=== PATIENT | female | born 1950 | race Caucasian/White ===

== ENCOUNTER 2017-02-15 01:56 | Emergency (ER) | payer MEDICARE ==
[~2017-02-15] VITALS: Ht 149.9 cm; Wt 70.0 kg
[~2017-02-15 01:56] MED LIST: 1-ME1LIQ PO; ALBU8I INH; AZEL0.05; CEPH500C3 PO; FLON0.053; MULTCAP3
[2017-02-15 02:09] VITALS: BP 135/75; PULSE 73; RESP 18; TEMP 97.8; O2SAT 98
[2017-02-15] MEDS ORDERED: AMLO5TAB2 PO (02:42)
[2017-02-15] MEDS ORDERED: CITA20TA4 PO (02:42)
[2017-02-15] MEDS ORDERED: SODIUM CHLOR 0.9% 1000 ML INJ 1,000 ML IV SCH (02:53)
[2017-02-15] MEDS ORDERED: diphenhydrAMINE HCL 50 MG/ML VIAL IVP ONE (03:00)
[2017-02-15] MEDS ORDERED: methylPREDNISolone SOD SUCC 125 MG/2 ML VIAL IVP ONE (03:00)
[2017-02-15 03:07] LABS: BLOOD, URINE SMALL (NEG); GLUCOSE,URINE NEG (NEG); KETONE, URINE 40 mg/dL (NEG); NITRITE,URINE NEG (NEG); PH, URINE 5.5 (5.0-8.5)
--- NOTE | 2017-02-15 03:08 | PD ---
HPI Chief Complaint: Allergic/Adverse Reaction Time Seen by Provider: 02:32 Travel History International Travel<30 days: No Contact w/Intl Traveler<30days: No Traveled to known affect area: No History of Present Illness HPI The patient is a 66-year-old female that apparently has a urinary infection and was given Macrobid. She took 4 doses of Macrobid thus far. She woke up at 1 AM this morning feeling like "whole body is burning". The patient had this sensation before with a urinary tract infection and she had another antibiotic. She denies any fever, nausea or vomiting. The patient apparently showed similar symptoms in 2014 before the antibiotic was given and she had a urinary tract infection. PFSH Past Medical History Asthma: Yes Anxiety: Yes Depression: Yes Cancer: No Cardiovascular Problems: Yes Diabetes: No Diminished Hearing: No Diverticulitis: Yes Endocrine: No Gastrointestinal Disorders: Yes (DIVERTICULOSIS) GERD: Yes Genitourinary: No Hepatitis: No Hiatal Hernia: Yes Hypertension: Yes Immune Disorder: No Musculoskeletal: Yes (ARTHRITIS, OSTEOPORISIS, (rt rotator cuff sx 2016)) Neurologic: Yes (POOR BALANCE) Psychiatric: Yes (DEPRESSION ,ANXIETY) Reproductive: No Respiratory: Yes (ASTHMA) Immunizations Current: Yes Thyroid Disease: No Influenza Vaccination: Yes Menopausal: Yes Past Surgical History Abdominal Surgery: Yes (GALLBLADDER REMOVED) AICD: No Body Medical Devices: pacemaker Cholecystectomy: Yes Eye Surgery: Yes (BILAT CATARACTS) Gynecologic Surgery: Yes (HYSTERECTOMY) Hysterectomy: Yes Joint Replacement: Yes (RIGHT KNEE) Pacemaker: Yes Other Surgery: Yes (THYROID NODULE REMOVED) Social History Alcohol Use: Yes (OCCASIONAL) Tobacco Use: No Substance Use: No Allergies-Medications (Allergen,Severity, Reaction): Coded Allergies: Dilaudid (Verified Allergy, Severe, Dizziness, 02/15/17) Floxcin (Unverified Allergy, Severe, RASH, 02/15/17) Morphine (Verified Allergy, Severe, NAUSEA CHEST PAIN, 02/15/17) Tramadol (Verified Allergy, Severe, Dizziness, 02/15/17) Codeine (Verified Allergy, Intermediate, N/V/DIZZINESS, 02/15/17) Reported Meds & Prescriptions Reported Meds & Active Scripts Active Reported Amlodipine (Amlodipine Besylate) 5 Mg Tab 5 Mg PO HS Citalopram (Citalopram Hydrobromide) 20 Mg Tab 20 Mg PO HS Review of Systems Except as stated in HPI: all other systems reviewed are Neg Physical Exam Narrative GENERAL: The patient is alert, oriented 3 in moderate apparent distress with her skin burning sensation. Her vital signs are normal. SKIN: Focused skin assessment warm/dry. No skin rash is seen. HEAD: Atraumatic. Normocephalic. EYES: Pupils equal and round. No scleral icterus. No injection or drainage. ENT: No nasal bleeding or discharge. Mucous membranes pink and moist. NECK: Trachea midline. No JVD. CARDIOVASCULAR: Regular rate and rhythm. No murmur appreciated. RESPIRATORY: No accessory muscle use. Clear to auscultation. Breath sounds equal bilaterally. GASTROINTESTINAL: Abdomen soft, non-tender, nondistended. Hepatic and splenic margins not palpable. The patient has right flank tenderness but no left flank tenderness. She also has suprapubic discomfort on deep palpation. MUSCULOSKELETAL: No obvious deformities. No clubbing. No cyanosis. No edema. NEUROLOGICAL: Awake and alert. No obvious cranial nerve deficits. Motor grossly within normal limits. Normal speech. PSYCHIATRIC: Appropriate mood and affect; insight and judgment normal. Data Data Last Documented VS Vital Signs Date Time Temp Pulse Resp B/P Pulse Ox O2 Delivery O2 Flow Rate FiO2 02/15/17 02:30 Room Air 02/15/17 02:09 97.8 73 18 135/75 98 Orders Diphenhydramine Inj (Benadryl Inj) (02/15/17 03:00) Methylprednisolone So Succ Inj (Solumedr (02/15/17 03:00) Sodium Chlor 0.9% 1000 Ml Inj (Ns 1000 M (02/15/17 02:53) Urinalysis - C+S If Indicated (02/15/17 02:53) Prochlorperazine Inj (Compazine Inj) (02/15/17 03:15) Labs Laboratory Tests Test 02/15/17 02:57 Urine Color STRAW Urine Turbidity CLEAR Urine pH 5.5 Urine Specific [place] 1.014 Urine Protein NEG mg/dL Urine Glucose (UA) NEG mg/dL Urine Ketones 40 mg/dL Urine Occult Blood SMALL Urine Nitrite NEG Urine Bilirubin NEG Urine Leukocyte Esterase SMALL Urine RBC 3-5 /hpf Urine WBC 6-8 /hpf Urine Squamous Epithelial 0-5 /hpf Cells Urine Bacteria NONE /hpf Microscopic Urinalysis Comment CULT NOT INDICATED MDM Medical Decision Making Medical Screen Exam Complete: Yes Emergency Medical Condition: Yes Medical Record Reviewed: Yes Interpretation(s) The urine shows 40 ketones, small occult blood, small leukocyte esterase with 6- 8 white cells and culture is not indicated. Differential Diagnosis Urinary tract infection, reaction to urinary infection, reaction to Macrobid antibiotic Narrative Course The patient appears to have a reaction to the urinary infection. This is happened before to her in 2014. She had a reaction very similar to this one before they started the antibiotic. The antibiotic used at that time was a different antibiotic also. Plan: The patient should continue the Macrobid twice daily. If the reaction gets worse we may have to discontinue the Macrobid. She will need to increase liquid intake, take Benadryl and a tapered course of prednisone as well as Phenergan for nausea. Diagnosis Primary Impression: Urinary tract infection Additional Impression: Allergic reaction Additional Instructions: As we discussed, the prednisone is taken one tablet twice daily for 4 days followed by 1 tablet daily for 4 days. If he get worse, we may need to discontinue the urinary antibiotic. I do not think krish's reaction is to the antibiotic but to the urinary infection. Take the Benadryl one tablet every 6 hours and the Phenergan is for nausea and this also is every 6 hours. Follow-up next week with your primary care physician. Med/Other Pt SpecificInfo: Prescription(s) given Scripts Promethazine (Phenergan)25 Mg [id number] Mg PO Q6H PRN (NAUSEA OR VOMITING) #30 TAB Ref 0 Prov:Kanu Reyes MD 02/15/17 Diphenhydramine 25 Mg Cap25 Mg PO Q6H #33 CAP Ref 0 Prov:Kanu Reyes MD 02/15/17 Prednisone 50 Mg Tab50 Mg PO BID #12 TAB Ref 0 Prov:Kanu Reyes MD 02/15/17 Disposition: 01 DISCHARGE HOME Condition: Stable Kanu Reyes MD Feb 15, 2017 03:08
[2017-02-15 03:10] LABS: URINE COLOR STRAW (YELLW/STRAW)
[2017-02-15 03:12] LABS: COMMENT (UR) CULT NOT INDICATED; CULTURE IF INDICATED CULT NOT INDICATED; SQUAMOUS EPITHELIAL CELL URINE 0-5 /hpf (0-5)
[2017-02-15] MEDS ORDERED: PROCHLORPERAZINE INJ 10 MG/2 ML VIAL IV PUSH ONE (03:15)
[2017-02-15] MEDS ORDERED: PROM25TA10 PO (03:36)
[2017-02-15] MEDS ORDERED: PRED50 PO (03:36)
[2017-02-15] MEDS ORDERED: DIPH25CA PO (03:36)
[2017-02-15] MEDS ORDERED: PROMETHAZINE HCL 25 MG TAB PO ONE (04:15)
[2017-02-15 04:17] VITALS: BP 136/75
== END 2017-02-15 04:18 | disposition home or self-care (01) ==
LOC: PHED 01:56
DX: N39.0 Urinary tract infection, site not specified (principal); T78.49XA Other allergy, initial encounter; I10 Essential (primary) hypertension; Z87.09 Personal history of other diseases of the respiratory system; Z86.59 Personal history of other mental and behavioral disorders; Z86.79 Personal history of other diseases of the circulatory system; Z87.19 Personal history of other diseases of the digestive system; Z87.39 Personal history of other diseases of the musculoskeletal system and connective tissue; Z86.69 Personal history of other diseases of the nervous system and sense organs; X58.XXXA Exposure to other specified factors, initial encounter
CPT/HCPCS: 81001; 96361; 96374; 96375; 99284; J0780; J1200; J2930; J7030; Q0169

== ENCOUNTER 2017-03-06 12:43 | Emergency (ER) | payer MEDICARE ==
[~2017-03-06] VITALS: Ht 149.9 cm; Wt 66.8 kg
[~2017-03-06 12:43] MED LIST changes: -1-ME1LIQ PO; -ALBU8I INH; +AMLO5TAB2 PO; -AZEL0.05; -CEPH500C3 PO; +CITA20TA4 PO; +DIPH25CA PO; -FLON0.053; -MULTCAP3; +PRED50 PO; +PROM25TA10 PO
[2017-03-06 12:52] VITALS: BP 165/79; PULSE 82; RESP 13; TEMP 98; O2SAT 100
--- NOTE | 2017-03-06 12:53 | PD ---
Physical Exam Date Seen by Provider: Mar 06, 2017 Time Seen by Provider: 12:52 MDM Supervised Visit with WAQAR: No Narrative Course 66 YO F with complaint of lightheadedness x 2 weeks. Also complains 6/10 burning abdominal pain, increased urinary output x 1 week. +nausea. History of diverticulitis. Vitals reviewed. Seen in triage, awaiting bed placement. Yenni Borrego Mar 06, 2017 12:53
[2017-03-06] MEDS ORDERED: SODIUM CHLOR 0.9% 1000 ML INJ 1,000 ML IV ONE (13:24)
--- NOTE | 2017-03-06 13:27 | PD ---
HPI Chief Complaint: General Weakness Time Seen by Provider: 13:27 Travel History International Travel<30 days: No Contact w/Intl Traveler<30days: No Traveled to known affect area: No History of Present Illness HPI 66-year-old female with a history of hypertension, GERD, hiatal hernia, anxiety , AV block with pacemaker implantation presents to the emergency department for evaluation of lightheadedness for 2 weeks and epigastric pain. The patient states that she has had intermittent lightheadedness for the past 2 weeks. States that she has had slight generalized weakness as well. States that over the past several days she's had epigastric pain that is a sharp burning pain and has been constant with some nausea. States that she's had this pain in the past and was seen by Dr. Hernandez and by her primary and was prescribed Carafate and referred out for EGD scheduled in the next several weeks. She states today she had some burning underneath both axilla radiating to her chest that lasted for a few minutes but has since resolved. States that she was diagnosed with urinary tract infection about 2 weeks ago and recently finished a prescription for Macrobid. She denies any fever, chills, vomiting, diarrhea, constipation, shortness of breath, difficulty breathing, cough or cold symptoms, numbness or tingling, one-sided weakness. PCP Dr. White. No other complaints. Prior abdominal surgeries include cholecystectomy and total hysterectomy. PFSH Past Medical History Asthma: Yes Anxiety: Yes Depression: Yes Cancer: No Cardiovascular Problems: Yes (PACEMAKER PLACEMENT 2016) Diabetes: No Diminished Hearing: No Diverticulitis: Yes Endocrine: No Gastrointestinal Disorders: Yes (DIVERTICULOSIS) GERD: Yes Genitourinary: No Hepatitis: No Hiatal Hernia: Yes Hypertension: Yes Immune Disorder: No Musculoskeletal: Yes (ARTHRITIS, OSTEOPORISIS, (rt rotator cuff sx 2016)) Neurologic: Yes (POOR BALANCE) Psychiatric: Yes (DEPRESSION ,ANXIETY) Reproductive: No Respiratory: Yes (ASTHMA) Immunizations Current: Yes Thyroid Disease: No ?: Not Menopausal: Yes Past Surgical History Abdominal Surgery: Yes (GALLBLADDER REMOVED) AICD: No Body Medical Devices: pacemaker Cholecystectomy: Yes Eye Surgery: Yes (BILAT CATARACTS) Gynecologic Surgery: Yes (HYSTERECTOMY) Hysterectomy: Yes Joint Replacement: Yes (RIGHT KNEE) Pacemaker: Yes Other Surgery: Yes (THYROID NODULE REMOVED) Social History Alcohol Use: Yes (OCCASIONAL) Tobacco Use: No Substance Use: No Allergies-Medications (Allergen,Severity, Reaction): Coded Allergies: Dilaudid (Verified Allergy, Severe, Dizziness, 03/06/17) Floxcin (Unverified Allergy, Severe, RASH, 03/06/17) Morphine (Verified Allergy, Severe, NAUSEA CHEST PAIN, 03/06/17) Tramadol (Verified Allergy, Severe, Dizziness, 03/06/17) Codeine (Verified Allergy, Intermediate, N/V/DIZZINESS, 03/06/17) Reported Meds & Prescriptions Reported Meds & Active Scripts Active Phenergan (Promethazine HCl) 25 Mg Tablet 25 Mg PO Q6H PRN Diphenhydramine (Diphenhydramine HCl) 25 Mg Cap 25 Mg PO Q6H Reported Carafate Liq (Sucralfate) 1 Gm/10 Ml Susp 1 Gm PO Q12HR on empty stomach Lorazepam 0.5 Mg Tab 0.5 Mg PO TID PRN Citalopram (Citalopram Hydrobromide) 10 Mg Tab 10 Mg PO HS Amlodipine (Amlodipine Besylate) 5 Mg Tab 5 Mg PO HS Review of Systems Except as stated in HPI: all other systems reviewed are Neg Physical Exam Narrative GENERAL: Well-nourished and well-developed pleasant female patient in no acute distress, anxious appearing. SKIN: Warm and dry. HEAD: Normocephalic and atraumatic. EYES: No injection, drainage, or hyphema noted. PERRLA. EOMI. ENT: No nasal drainage noted. Oropharynx is clear. NECK: Supple and the trachea is midline. CARDIOVASCULAR: Regular rate and rhythm. RESPIRATORY: Breath sounds are equal bilaterally with no accessory muscle use, wheezing, rhonchi, or crackles. GASTROINTESTINAL: Mild epigastric tenderness to palpation. No rebound tenderness or guarding. Abdomen is soft and nondistended. MUSCULOSKELETAL: No obvious deformities, swelling, cyanosis, or ecchymosis is present throughout the upper and lower extremities. Patient has full range of motion without any signs of neurovascular compromise. Strength 5/5 upper and lower extremities and equal bilaterally. NEUROLOGICAL: Awake, alert, and oriented. Normal speech and gait. Cranial nerves are grossly intact. Data Data Last Documented VS Vital Signs Date Time Temp Pulse Resp B/P Pulse Ox O2 Delivery O2 Flow Rate FiO2 03/06/17 12:52 98.0 82 13 165/79 100 Orders Electrocardiogram (03/06/17 13:24) Complete Blood Count With Diff (03/06/17 13:24) Comprehensive Metabolic Panel (03/06/17 13:24) Troponin I (03/06/17 13:24) Act Partial Throm Time (Ptt) (03/06/17 13:24) Prothrombin Time / Inr (Pt) (03/06/17 13:24) Urinalysis - C+S If Indicated (03/06/17 13:24) Chest, Single Ap (03/06/17 13:24) Ecg Monitoring (03/06/17 13:24) Iv Access Insert/Monitor (03/06/17 13:24) Oximetry (03/06/17 13:24) Ondansetron Inj (Zofran Inj) (03/06/17 13:30) Sodium Chloride 0.9% Flush (Ns Flush) (03/06/17 13:30) Sodium Chlor 0.9% 1000 Ml Inj (Ns 1000 M (03/06/17 13:24) Lipase (03/06/17 13:24) Famotidine Inj (Pepcid Inj) (03/06/17 13:30) Potassium Chloride Eff (K-Lyte Cl Eff) (03/06/17 14:45) Al-Mag Hy-Si 40-40-4 Mg/Ml Liq (Mag-Al P (03/06/17 15:45) Lidocaine 2% Viscous (Xylocaine 2% Visco (03/06/17 15:45) Labs Laboratory Tests Test 03/06/17 03/06/17 13:40 13:52 White Blood Count 5.4 TH/MM3 Red Blood Count 4.98 MIL/MM3 Hemoglobin 14.2 GM/DL Hematocrit 42.0 % Mean Corpuscular Volume 84.3 FL Mean Corpuscular Hemoglobin 28.5 PG Mean Corpuscular Hemoglobin 33.8 % Concent Red Cell Distribution Width 13.8 % Platelet Count 234 TH/MM3 Mean Platelet Volume 7.5 FL Neutrophils (%) (Auto) 60.1 % Lymphocytes (%) (Auto) 27.5 % Monocytes (%) (Auto) 8.1 % Eosinophils (%) (Auto) 3.1 % Basophils (%) (Auto) 1.2 % Neutrophils # (Auto) 3.2 TH/MM3 Lymphocytes # (Auto) 1.5 TH/MM3 Monocytes # (Auto) 0.4 TH/MM3 Eosinophils # (Auto) 0.2 TH/MM3 Basophils # (Auto) 0.1 TH/MM3 CBC Comment DIFF FINAL Differential Comment Prothrombin Time 10.8 SEC Prothromb Time International 1.0 RATIO Ratio Activated Partial 28.4 SEC Thromboplast Time Sodium Level 142 MEQ/L Potassium Level 3.1 MEQ/L Chloride Level 105 MEQ/L Carbon Dioxide Level 25.7 MEQ/L Anion Gap 11 MEQ/L Blood Urea Nitrogen 8 MG/DL Creatinine 0.53 MG/DL Estimat Glomerular Filtration 115 ML/MIN Rate Random Glucose 93 MG/DL Calcium Level 9.3 MG/DL Total Bilirubin 0.6 MG/DL Aspartate Amino Transf 20 U/L (AST/SGOT) Alanine Aminotransferase 27 U/L (ALT/SGPT) Alkaline Phosphatase 143 U/L Troponin I 0.02 NG/ML Total Protein 7.1 GM/DL Albumin 3.4 GM/DL Lipase 99 U/L Urine Color YELLOW Urine Turbidity CLEAR Urine pH 5.5 Urine Specific [place] 1.009 Urine Protein NEG mg/dL Urine Glucose (UA) NEG mg/dL Urine Ketones 80 mg/dL Urine Occult Blood SMALL Urine Nitrite NEG Urine Bilirubin NEG Urine Urobilinogen LESS THAN 2.0 MG/DL Urine Leukocyte Esterase SMALL Urine RBC 5 /hpf Urine WBC 6 /hpf Urine Squamous Epithelial 1 /hpf Cells Urine Bacteria RARE /hpf Urine Mucus FEW /lpf Microscopic Urinalysis Comment CULT NOT INDICATED MDM Medical Decision Making Medical Screen Exam Complete: Yes Emergency Medical Condition: Yes Differential Diagnosis Dehydration versus urinary tract infection versus anxiety versus electrolyte abnormality versus gastritis Narrative Course 66-year-old female presents to the emergency department for evaluation of 2 week history of lightheadedness and several day history of epigastric pain. Patient is afebrile, vital signs are stable. His examination reveals some mild epigastric tenderness but overall abdominal examination is benign. No focal neurologic deficits. IV access is obtained, labs drawn and sent. Patient is placed on cardiac telemetry and pulse oximetry monitoring. Patient is administered IV fluids, Zofran and Pepcid. EKG shows electronic ventricular pacemaker with a ventricular rate of 69 beats per minute. CBC is unremarkable. CMP shows hypokalemia with a potassium of 3.1. Alkaline phosphatase elevated 143. Troponin is 0.02. Coags were unremarkable. Urinalysis shows 80 ketones, small occult blood, small site esterase, 5 red blood cells, 6 white blood cells, rare bacteria, few mucus. Patient has remained stable while here in the emergency department. Her potassium was repleted orally. The patient has mild hypokalemia, mild dehydration and urinary tract infection noted on her labs and UA. All of these things could explain her lightheadedness. I don't feel that her symptoms are neurologic or secondary to an intracranial abnormality therefore head CT was canceled. I discussed supportive care with the patient and her . She' ll be given a GI cocktail here in the ED before she is discharged. She'll be sent home with Zantac and Keflex. Advised to follow-up with her PCP and fish agent. Patient verbalizes understanding and agreement with treatment plan. I discussed the case with my attending physician Dr. Arteaga who is aware of the patients history, physical examination findings, and treatment plan. Diagnosis Primary Impression: Urinary tract infection Qualified Code: N39.0 - Urinary tract infection with hematuria, site unspecified Additional Impressions: Gastritis Qualified Code: K29.00 - Acute gastritis without hemorrhage, unspecified gastritis type Hypokalemia Lightheadedness Referrals: [facility] Care Physician Patient Instructions: Gastritis (ED), General Instructions, Urinary Tract Infection in Women (ED) Additional Instructions: Take medications as prescribed. Follow-up with your Primary Care Physician and [facility]. Return to the ED for any acute worsening of symptoms. Med/Other Pt SpecificInfo: Prescription(s) given Scripts Cephalexin (Keflex)500 Mg Gal361 Mg PO Q12H 7 Days Ref 0 Prov:Azar Arteaga MD 03/06/17 Ranitidine 150 Mg [id number] Mg PO BID 14 Days Ref 0 Prov:Azar Arteaga MD 03/06/17 Disposition: 01 DISCHARGE HOME Condition: Stable Zita Aguilar Mar 06, 2017 13:27
[2017-03-06] MEDS ORDERED: FAMOTIDINE 20 MG/2 ML VIAL IV PUSH ONE (13:30)
[2017-03-06] MEDS ORDERED: ONDANSETRON HCL 4 MG/2 ML VIAL IVP ONE (13:30)
[2017-03-06] MEDS ORDERED: SODIUM CHLORIDE 0.9% FLUSH 10 ML FLUSH IVF PRN (13:30)
[2017-03-06 13:35] VITALS: BP 157/75; PULSE 72; RESP 18; O2SAT 98
[2017-03-06 14:05] LABS: AUTOMATED NEUTROPHIL # 3.2 TH/MM3 (1.8-7.7); BASOPHIL # 0.1 TH/MM3 (0-0.2); BASOPHIL % 1.2 % (0.0-2.0); EOSINOPHIL # 0.2 TH/MM3 (0-0.4); EOSINOPHIL % 3.1 % (0.0-4.0); HEMO FLAGS DIFF FINAL; LYMPH % 27.5 % (9.0-44.0); LYMPHOCYTE # 1.5 TH/MM3 (1.0-4.8); MEAN CELL VOLUME 84.3 FL (80.0-100.0); MEAN CORPUSCULAR HEMOGLOBIN 28.5 PG (27.0-34.0); MEAN CORPUSCULAR HGB CONC 33.8 % (32.0-36.0); MONO % 8.1 % (0.0-8.0); NEUT % 60.1 % (16.0-70.0); PLATELET COUNT 234 TH/MM3 (150-450); RED BLOOD COUNT 4.98 MIL/MM3 (4.00-5.30); RED CELL DISTRIBUTION WIDTH 13.8 % (11.6-17.2); WHITE BLOOD COUNT 5.4 TH/MM3 (4.0-11.0)
[2017-03-06 14:13] LABS: BACTERIA, URINE RARE /hpf; BLOOD, URINE SMALL (NEG); COMMENT (UR) CULT NOT INDICATED; CULTURE IF INDICATED CULT NOT INDICATED; GLUCOSE,URINE NEG (NEG); KETONE, URINE 80 mg/dL (NEG); MUCUS URINE FEW /lpf (OCC); NITRITE,URINE NEG (NEG); PH, URINE 5.5 (5.0-8.5); SQUAMOUS EPITHELIAL CELL URINE 1 /hpf (0-5); URINE COLOR YELLOW (YELLW/STRAW)
[2017-03-06 14:14] LABS: APTT (PATIENT) 28.4 SEC (24.3-30.1); PROTHROMBIN TIME - PATIENT 10.8 SEC (9.8-11.6)
[2017-03-06 14:21] LABS: ALT (GPT) 27 U/L (10-53); ANION GAP 11 MEQ/L (5-15); AST (GOT) 20 U/L (15-37); BICARBONATE 25.7 MEQ/L (21.0-32.0); BLOOD UREA NITROGEN 8 MG/DL (7-18); CHLORIDE 105 MEQ/L (98-107); GLOMERULAR FILTRATION RATE 115 ML/MIN (>89); POTASSIUM 3.1 MEQ/L (3.5-5.1); SODIUM (NA) 142 MEQ/L (136-145)
[2017-03-06 14:24] LABS: ALKALINE PHOSPHATASE 143 U/L (45-117); TOTAL BILIRUBIN ADULT 0.6 MG/DL (0.2-1.0)
--- NOTE | 2017-03-06 14:38 | RADRPT ---
EXAM DATE/TIME: 03/06/2017 14:06 [facility] COMPARISON: CHEST SINGLE AP, May 17, 2016, 12:17. INDICATIONS : Dizzy for 2 weeks, weak. MEDICAL HISTORY : mitral valve prolapse, right bundle branch block, heart murmur, asthma SURGICAL HISTORY : Pacemaker. ENCOUNTER: Initial ACUITY: 2 weeks PAIN SCORE: 0/10 LOCATION: Bilateral chest FINDINGS: Stable dual-lead pacemaker. Lungs are clear. Cardiomediastinal contours are stable. Bony thorax is in tact. CONCLUSION: 1. No acute cardio pulmonary disease. Josh Mcguire MD on March 06, 2017 at 14:34 Board Certified Radiologist. This report was verified electronically.
[2017-03-06] MEDS ORDERED: POTASSIUM CHLORIDE 25 MEQ EFFERVESCENT TAB PO ONE (14:45)
[2017-03-06] MEDS ORDERED: CITA10TA4 PO (15:12)
[2017-03-06] MEDS ORDERED: CARA1SUS3 PO (15:12)
[2017-03-06] MEDS ORDERED: LORA-373 PO (15:12)
[2017-03-06] MEDS ORDERED: CEPH-460 PO (15:34)
[2017-03-06] MEDS ORDERED: RANI150T PO (15:34)
[2017-03-06] MEDS ORDERED: ALUMINUM/MAGNESIUM/SIMETH 30 ML CUP PO ONE (15:45)
[2017-03-06] MEDS ORDERED: LIDOCAINE VISCOUS 2% SOLN 15 ML UDC PO ONE (15:45)
[2017-03-06] MEDS ORDERED: DIFL150T PO (16:12)
--- NOTE | 2017-03-07 13:51 | EKG ---
Date Performed: 03/06/2017 Time Performed: 14:02:19 PTAGE: 66 years EKG: ELECTRONIC VENTRICULAR PACEMAKER ABNORMAL RHYTHM ECG Compared to prior tracing no significa nt change PREVIOUS TRACING : 05/18/2016 07.11 DOCTOR: Staci Harding Interpretating Date/Time 03/07/2017 13:45:33
== END 2017-03-06 16:29 | disposition home or self-care (01) ==
LOC: NEPC 12:43
DX: F32.9 Major depressive disorder, single episode, unspecified (principal); N39.0 Urinary tract infection, site not specified; K29.70 Gastritis, unspecified, without bleeding; E87.6 Hypokalemia; R42 Dizziness and giddiness; I10 Essential (primary) hypertension; K21.9 Gastro-esophageal reflux disease without esophagitis; F41.9 Anxiety disorder, unspecified; J45.909 Unspecified asthma, uncomplicated; K57.92 Diverticulitis of intestine, part unspecified, without perforation or abscess without bleeding
CPT/HCPCS: 71010; 80053; 81001; 83690; 84484; 85025; 85610; 85730; 93005; 96361; 96374; 96375; 99285; J2405; J7030

== ENCOUNTER 2017-08-05 07:36 | Observation (INO) | payer MEDICARE ==
[~2017-08-05] VITALS: Ht 149.9 cm; Wt 66.0 kg
[~2017-08-05 07:36] MED LIST changes: +CARA1SUS3 PO; +CEPH-460 PO; +CITA10TA4 PO; -CITA20TA4 PO; +DIFL150T PO; +LORA0.5T PO; -PRED50 PO; +RANI150T PO
[2017-08-05 07:39] VITALS: BP 182/86; PULSE 91; RESP 18; TEMP 98.1; O2SAT 96
[2017-08-05] MEDS ORDERED: ALBUAER3 INH (08:08)
[2017-08-05] MEDS ORDERED: FLUT50SP EACH NARE (08:08)
[2017-08-05] MEDS ORDERED: CRAN200C2 (08:08)
[2017-08-05] MEDS ORDERED: SODIUM CHLORIDE 0.9% FLUSH 10 ML FLUSH IVF PRN (08:15)
[2017-08-05] MEDS ORDERED: ASPIRIN 81 MG CHEW TAB PO ONE (08:15)
[2017-08-05 08:27] LABS: AUTOMATED NEUTROPHIL # 4.3 TH/MM3 (1.8-7.7); BASOPHIL # 0.1 TH/MM3 (0-0.2); EOSINOPHIL # 0.2 TH/MM3 (0-0.4); EOSINOPHIL % 2.4 % (0.0-4.0); HEMATOCRIT 38.3 % (35.0-46.0); HEMO FLAGS DIFF FINAL; LYMPH % 26.5 % (9.0-44.0); LYMPHOCYTE # 1.8 TH/MM3 (1.0-4.8); MEAN CELL VOLUME 86.8 FL (80.0-100.0); MEAN CORPUSCULAR HEMOGLOBIN 29.9 PG (27.0-34.0); MEAN CORPUSCULAR HGB CONC 34.4 % (32.0-36.0); MONO % 6.4 % (0.0-8.0); NEUT % 63.7 % (16.0-70.0); PLATELET COUNT 297 TH/MM3 (150-450); RED BLOOD COUNT 4.42 MIL/MM3 (4.00-5.30); RED CELL DISTRIBUTION WIDTH 12.8 % (11.6-17.2); WHITE BLOOD COUNT 6.7 TH/MM3 (4.0-11.0)
[2017-08-05 08:38] LABS: APTT (PATIENT) 28.7 SEC (24.3-30.1); PROTHROMBIN TIME - PATIENT 10.7 SEC (9.8-11.6)
[2017-08-05 08:48] LABS: BLOOD, URINE NEG (NEG); GLUCOSE,URINE NEG (NEG); KETONE, URINE NEG (NEG); NITRITE,URINE NEG (NEG); URINE COLOR LIGHT-YELLOW (YELLW/STRAW)
[2017-08-05 08:51] LABS: MUCUS URINE FEW /lpf (OCC); WBC, URINE 0-2 /hpf (0-5)
[2017-08-05 08:52] LABS: BACTERIA, URINE OCC /hpf; COMMENT (UR) CULT NOT INDICATED; CULTURE IF INDICATED CULT NOT INDICATED; SQUAMOUS EPITHELIAL CELL URINE 0-5 /hpf (0-5)
[2017-08-05 08:55] LABS: ALKALINE PHOSPHATASE 161 U/L (45-117); ALT (GPT) 18 U/L (10-53); ANION GAP 8 MEQ/L (5-15); AST (GOT) 19 U/L (15-37); BLOOD UREA NITROGEN 13 MG/DL (7-18); CHLORIDE 106 MEQ/L (98-107); GLOMERULAR FILTRATION RATE 106 ML/MIN (>89); SODIUM (NA) 141 MEQ/L (136-145); TOTAL BILIRUBIN ADULT 0.3 MG/DL (0.2-1.0)
[2017-08-05 08:56] LABS: CREATINE KINASE 70 U/L (26-192)
[2017-08-05 08:58] LABS: POTASSIUM 2.9 MEQ/L (3.5-5.1)
--- NOTE | 2017-08-05 08:58 | RADRPT ---
EXAM DATE/TIME: 08/05/2017 08:23 [facility] COMPARISON: CHEST SINGLE AP, March 06, 2017, 14:06. INDICATIONS : Irregular heart beat. Pacemaker keeps going off. MEDICAL HISTORY : Irregular heart beat. SURGICAL HISTORY : Pacemaker. ENCOUNTER: Initial ACUITY: 2 days PAIN SCORE: 0/10 LOCATION: Bilateral chest FINDINGS: Stable dual lead pacemaker with battery pack obscuring portion of the inferior left hemithorax. No ne w focal pleural or parenchymal opacities. Cardiomediastinal contours are within normal limits. Bony t horax is intact. CONCLUSION: 1. No acute abnormality or significant interval change. Josh Mcguire MD on August 05, 2017 at 8:56 Board Certified Radiologist. This report was verified electronically.
[2017-08-05] MEDS ORDERED: POTASSIUM CHLORIDE 10 MEQ CONTROLLED RELEASE TAB PO ONE (09:00)
--- NOTE | 2017-08-05 09:15 | PD ---
HPI Chief Complaint: Chest Pain Time Seen by Provider: 08:01 Travel History International Travel<30 days: No Contact w/Intl Traveler<30days: No Traveled to known affect area: No History of Present Illness HPI Patient is a 66 year old female who comes in complaining of chest pain. She says for three weeks she had pain on and off in the center of her chest. She says that last night it became worse. She says she gets pain across her chest and into her shoulder. She says she has some shortness of breath associated with the pain, but denies vomiting. She says she came in today because the pain went into her arms and this worried her. She denies abdominal pain. She describes the chest pain as a pressure sensation in her chest. She has not taken anything for her symptoms. [facility] Past Medical History Asthma: Yes Anxiety: Yes Depression: Yes Heart Rhythm Problems: Yes (R BBB ) Cancer: No Cardiovascular Problems: Yes (PACEMAKER ) Diabetes: No Diminished Hearing: No Diverticulitis: Yes Endocrine: Yes (HYPOGLYCEMIA) Gastrointestinal Disorders: Yes (DIVERTICULOSIS) GERD: Yes Genitourinary: No Hepatitis: No Hiatal Hernia: Yes Hypertension: Yes Immune Disorder: Yes (MARKERS FOR LUPUS ) Musculoskeletal: Yes (ARTHRITIS, OSTEOPORISIS, (rt rotator cuff sx 2016)) Neurologic: Yes (POOR BALANCE) Psychiatric: Yes (DEPRESSION ,ANXIETY) Reproductive: No Respiratory: Yes (ASTHMA) Immunizations Current: Yes Thyroid Disease: No Tetanus Vaccination: < 5 Years Menopausal: Yes Past Surgical History Abdominal Surgery: Yes (GALLBLADDER REMOVED) AICD: No Body Medical Devices: pacemaker Cholecystectomy: Yes Eye Surgery: Yes (BILAT CATARACTS) Gynecologic Surgery: Yes (HYSTERECTOMY) Hysterectomy: Yes Joint Replacement: Yes (RIGHT KNEE) Pacemaker: Yes Other Surgery: Yes (THYROID NODULE REMOVED) Social History Alcohol Use: Yes (RARE ) Tobacco Use: No Substance Use: No Allergies-Medications (Allergen,Severity, Reaction): Coded Allergies: hydromorphone (Unverified Allergy, Severe, Dizziness, 08/05/17) morphine (Unverified Allergy, Severe, NAUSEA CHEST PAIN, 08/05/17) ofloxacin (Unverified Allergy, Severe, RASH, 08/05/17) tramadol (Unverified Allergy, Severe, Dizziness, 08/05/17) codeine (Unverified Allergy, Intermediate, N/V/DIZZINESS, 08/05/17) Reported Meds & Prescriptions Reported Meds & Active Scripts Active Ranitidine (Ranitidine HCl) 150 Mg Tab 150 Mg PO BID 14 Days Reported Proair Hfa 8.5 GM Inh (Albuterol Sulfate) 90 Mcg/Act Aer 1 Puff INH Q4H PRN 108 mcg/actuation Fluticasone Nasal [place] 50 Mcg/Act Naspr 50 Mcg EACH NARE BID 50 mcg/spray Ellura (Cranberry (Vaccinium Macrocarpon)) 200 Mg Cap Lorazepam 0.5 Mg Tab 0.5 Mg PO TID PRN Citalopram (Citalopram Hydrobromide) 10 Mg Tab 10 Mg PO HS Amlodipine (Amlodipine Besylate) 5 Mg Tab 5 Mg PO HS Review of Systems Except as stated in HPI: all other systems reviewed are Neg General / Constitutional: No: Fever, Chills HENT: No: Headaches, Lightheadedness Cardiovascular: Positive: Chest Pain or Discomfort Respiratory: Positive: Shortness of Breath, No: Cough Gastrointestinal: Positive: Nausea, No: Vomiting, Abdominal Pain Genitourinary: No: Dysuria Musculoskeletal: No: Weakness, Edema Skin: No Rash, No Change in Pigmentation Neurologic: No: Weakness, Dizziness Physical Exam Narrative GENERAL: Awake and alert, in no acute distress. SKIN: Focused skin assessment warm/dry. HEAD: Atraumatic. Normocephalic. EYES: Pupils equal and round. No scleral icterus. ENT: Mucous membranes pink and moist. NECK: Trachea midline. No JVD. CARDIOVASCULAR: Regular rate and rhythm. No murmur appreciated. RESPIRATORY: No accessory muscle use. Clear to auscultation. Breath sounds equal bilaterally. GASTROINTESTINAL: Abdomen soft, non-tender, nondistended. MUSCULOSKELETAL: No obvious deformities. No clubbing. No cyanosis. No edema. NEUROLOGICAL: Awake and alert. No obvious cranial nerve deficits. Motor grossly within normal limits. Normal speech. PSYCHIATRIC: Appropriate mood and affect; insight and judgment normal. Data Data Last Documented VS Vital Signs Date Time Temp Pulse Resp B/P (MAP) Pulse Ox O2 Delivery O2 Flow Rate FiO2 08/05/17 08:18 Room Air 08/05/17 07:55 76 16 08/05/17 07:39 98.1 182/86 (118) 96 Orders Orders Electrocardiogram (08/05/17 08:01) Ckmb (Isoenzyme) Profile (08/05/17 08:01) Complete Blood Count With Diff (08/05/17 08:) Comprehensive Metabolic Panel (08/05/17 08:) Prothrombin Time / Inr (Pt) (08/05/17 08:) Act Partial Throm Time (Ptt) (08/05/17 08:01) Troponin I (08/05/17 08:) Chest, Single Ap (08/05/17 08:) Ecg Monitoring (08/05/17 08:) Bilateral Bp Monitoring (08/05/17 08:) Iv Access Insert/Monitor (08/05/17 08:) Oximetry (08/05/17 08:) Oxygen Administration (08/05/17 08:) Aspirin Chew (Aspirin Chew) (08/05/17 08:15) Sodium Chloride 0.9% Flush (Ns Flush) (08/05/17 08:15) Urinalysis - C+S If Indicated (08/05/17 08:) Potassium Chloride (Kcl) (08/05/17 09:00) Admit Order (Ed Use Only) (08/05/17 ) Labs Laboratory Tests Test 08/05/17 08:12 08/05/17 08:25 White Blood Count 6.7 TH/MM3 Red Blood Count 4.42 MIL/MM3 Hemoglobin 13.2 GM/DL Hematocrit 38.3 % Mean Corpuscular Volume 86.8 FL Mean Corpuscular Hemoglobin 29.9 PG Mean Corpuscular Hemoglobin Concent 34.4 % Red Cell Distribution Width 12.8 % Platelet Count 297 TH/MM3 Mean Platelet Volume 7.8 FL Neutrophils (%) (Auto) 63.7 % Lymphocytes (%) (Auto) 26.5 % Monocytes (%) (Auto) 6.4 % Eosinophils (%) (Auto) 2.4 % Basophils (%) (Auto) 1.0 % Neutrophils # (Auto) 4.3 TH/MM3 Lymphocytes # (Auto) 1.8 TH/MM3 Monocytes # (Auto) 0.4 TH/MM3 Eosinophils # (Auto) 0.2 TH/MM3 Basophils # (Auto) 0.1 TH/MM3 CBC Comment DIFF FINAL Differential Comment Prothrombin Time 10.7 SEC Prothromb Time International Ratio 1.0 RATIO Activated Partial Thromboplast Time 28.7 SEC Blood Urea Nitrogen 13 MG/DL Creatinine 0.57 MG/DL Random Glucose 94 MG/DL Total Protein 6.9 GM/DL Albumin 3.4 GM/DL Calcium Level 8.5 MG/DL Alkaline Phosphatase 161 U/L Aspartate Amino Transf (AST/SGOT) 19 U/L Alanine Aminotransferase (ALT/SGPT) 18 U/L Total Bilirubin 0.3 MG/DL Sodium Level 141 MEQ/L Potassium Level 2.9 MEQ/L Chloride Level 106 MEQ/L Carbon Dioxide Level 27.0 MEQ/L Anion Gap 8 MEQ/L Estimat Glomerular Filtration Rate 106 ML/MIN Total Creatine Kinase 70 U/L Troponin I LESS THAN 0.02 NG/ML Urine Color LIGHT-YELLOW Urine Turbidity CLEAR Urine pH 7.0 Urine Specific [place] 1.009 Urine Protein NEG mg/dL Urine Glucose (UA) NEG mg/dL Urine Ketones NEG mg/dL Urine Occult Blood NEG Urine Nitrite NEG Urine Bilirubin NEG Urine Urobilinogen LESS THAN 2.0 MG/DL Urine Leukocyte Esterase NEG Urine RBC 4-9 /hpf Urine WBC 0-2 /hpf Urine Squamous Epithelial Cells 0-5 /hpf Urine Bacteria OCC /hpf Urine Mucus FEW /lpf Microscopic Urinalysis Comment CULT NOT INDICATED MDM Medical Decision Making Medical Screen Exam Complete: Yes Emergency Medical Condition: Yes Medical Record Reviewed: Yes Interpretation(s) ECG shows a paced rhythm Differential Diagnosis ACS vs NSTEMI vs STEMI Narrative Course Patient is a 66 year old female who comes in complaining of chest pain. Exam shows no acute abnormalities. IV established, labs sent, patient connected to the prenatal teacher. Labs show a potassium of 2.9, this was replaced. Troponin is negative. Patient given Aspirin. Will be placed in chest pain center for further management. Diagnosis Primary Impression: Chest pain Qualified Codes: R07.9 - Chest pain, unspecified Admitting Information Admitting Physician Requests: Yeni Mcbride MD Aug 05, 2017 09:15
[2017-08-05] MEDS ORDERED: ONDANSETRON HCL 4 MG/2 ML VIAL IV PUSH PRN (10:00)
[2017-08-05] MEDS ORDERED: ACETAMINOPHEN 500 MG CPLT PO PRN (10:00)
[2017-08-05] MEDS ORDERED: NITROGLYCERIN 0.4 MG SL 25 TABS/BTL SL PRN (10:00)
[2017-08-05 10:47] VITALS: BP 171/72; PULSE 68; RESP 18; O2SAT 97
[2017-08-05 11:27] VITALS: BP 134/62; PULSE 60; RESP 16; TEMP 97.9; O2SAT 97
[2017-08-05 12:00] VITALS: PULSE 60
--- NOTE | 2017-08-05 12:55 | HHI.HP ---
HPI Primary Care Physician Piper Ferraro MD Chief Complaint Chest pain History of Present Illness 66-year-old female with history of hypertension and pacemaker placement due to symptomatic AV block presents to emergency room for further evaluation of intermittent chest pain x 3 weeks. Location substernal. Characterized as "non- A pain or an ache but a pressure." No radiation of pain. Duration varies from 5-10 minutes. Associated symptoms of nausea and hurts to take a deep breath. No associated symptoms of dyspnea, diaphoresis, or vomiting. No known precipitating or relieving factors. She relates discomfort to occur more with exertion although has occurred during rest as well. Experienced dizziness while walking last night and again in morning. Denies feeling of near syncope or the room to be spinning, stating "I just felt dizzy." Review of Systems General: No fatigue,weakness, fever, chills, recent illness, or change in appetite. HEENT: No LUCAS, no vision changes CV: As stated above. No current chest pain or pressure. No palpitations. Dizziness as stated above. RESP: No SOB, cough, wheeze, or recent respiratory illness. History of asthma. GI: No nausea, vomiting, or bowel changes. : No dysuria. Concern she may have had a UTI due to chest discomfort stating she had never presented with a UTI with dysuria or frequency. Follows with a urologist, Dr. Groves. EXT: No lower leg edema MS: No discomfort or change in ROM NEURO: No difficulty with balance, LOC, motor/sensory deficits PSYCH: No anxiety, depression, or situational stress. SKIN: No rashes, no concerning lesions Past Family Social History Allergies: Coded Allergies: hydromorphone (Unverified Allergy, Severe, Dizziness, 08/05/17) morphine (Unverified Allergy, Severe, NAUSEA CHEST PAIN, 08/05/17) ofloxacin (Unverified Allergy, Severe, RASH, 08/05/17) tramadol (Unverified Allergy, Severe, Dizziness, 08/05/17) codeine (Unverified Allergy, Intermediate, N/V/DIZZINESS, 08/05/17) Past Medical History Asthma, anxiety, diverticulosis, hypertension, hiatal hernia, mitral valve prolapse, GERD, symptomatic AV block Past Surgical History pacemaker, hysterectomy, bilateral cataract surgery, R knee replacement, only cystectomy, thyroid nodule removed Reported Medications Reported Meds & Active Scripts Reported Proair Hfa 8.5 GM Inh (Albuterol Sulfate) 90 Mcg/Act Aer 1 Puff INH Q4H PRN 108 mcg/actuation Ellura (Cranberry (Vaccinium Macrocarpon)) 200 Mg Cap Lorazepam 0.5 Mg Tab 0.5 Mg PO TID PRN Citalopram (Citalopram Hydrobromide) 10 Mg Tab 10 Mg PO HS Amlodipine (Amlodipine Besylate) 5 Mg Tab 5 Mg PO HS Active Ordered Medications Current Medications Medications (Trade) Dose Ordered Sig/Celine Route Start Time Stop Time Status Last Admin (NS Flush) 2 ml UNSCH PRN IVF 08/05/17 08:15 (NS Flush) 2 ml BID IV FLUSH 08/05/17 21:00 (Tylenol) 500 mg Q4H PRN PO 08/05/17 10:00 (Zofran Inj) 4 mg Q6H PRN IV PUSH 08/05/17 10:00 (Nitrostat Sl) 0.4 mg Q5M PRN SL 08/05/17 10:00 (Aspirin) 325 mg DAILY PO 08/06/17 09:00 Social History Known hypertension. No known diabetes, hyperlipidemia, or coronary artery disease. Lifelong nonsmoker. Denies any alcohol use. Endorses an active lifestyle. Past cardiac testing No recent stress testing. Pacemaker June [address] Sanford for symptomatic AV block. Patient's hydrotechnical specialist Dr. Dahlia Rosen. Denies every requiring a cardiac catheterization. Physical Exam Vital Signs Vital Signs Date Time Temp Pulse Resp B/P (MAP) Pulse Ox O2 Delivery O2 Flow Rate FiO2 08/05/17 11:27 97.9 60 16 134/62 (86) 97 08/05/17 11:06 08/05/17 10:47 68 18 171/72 (105) 97 Room Air 08/05/17 08:18 Room Air 08/05/17 07:55 76 16 08/05/17 07:39 98.1 91 18 182/86 (118) 96 Physical Exam GENERAL: Alert WN, WD, NAD, pleasant, female HEAD: NC, AT NECK: Supple, no masses, trachea midline CV: RRR, without murmur, rub, gallop, no JVD, S1-S2 no S3-S4. No carotid bruits. Chest wall nontender with palpation. RESP: Clear lungs throughout bilateral, no crackles, wheeze, rhonchi, symmetrical chest rise, nonlabored, able to speak in full sentences ABD: Soft, NT, ND, no masses, positive bowel tones EXT: Pulses +24, no dependent edema MS: Normal tone 4 extremities, no obvious deformities, full range of motion NEURO: motor strength 5/5, gait WNL PSYCH: A+O 3, pleasant affect, appropriate mood, insight and judgment SKIN: Normal turgor, normal texture, no lesions, no rashes, brisk cap refill, even hair distribution Laboratory Laboratory Tests Test 08/05/17 08:12 08/05/17 08:25 08/05/17 10:53 White Blood Count 6.7 Red Blood Count 4.42 Hemoglobin 13.2 Hematocrit 38.3 Mean Corpuscular Volume 86.8 Mean Corpuscular Hemoglobin 29.9 Mean Corpuscular Hemoglobin Concent 34.4 Red Cell Distribution Width 12.8 Platelet Count 297 Mean Platelet Volume 7.8 Neutrophils (%) (Auto) 63.7 Lymphocytes (%) (Auto) 26.5 Monocytes (%) (Auto) 6.4 Eosinophils (%) (Auto) 2.4 Basophils (%) (Auto) 1.0 Neutrophils # (Auto) 4.3 Lymphocytes # (Auto) 1.8 Monocytes # (Auto) 0.4 Eosinophils # (Auto) 0.2 Basophils # (Auto) 0.1 CBC Comment DIFF FINAL Differential Comment Prothrombin Time 10.7 Prothromb Time International Ratio 1.0 Activated Partial Thromboplast Time 28.7 Blood Urea Nitrogen 13 Creatinine 0.57 Random Glucose 94 Total Protein 6.9 Albumin 3.4 Calcium Level 8.5 Alkaline Phosphatase 161 Aspartate Amino Transf (AST/SGOT) 19 Alanine Aminotransferase (ALT/SGPT) 18 Total Bilirubin 0.3 Sodium Level 141 Potassium Level 2.9 Chloride Level 106 Carbon Dioxide Level 27.0 Anion Gap 8 Estimat Glomerular Filtration Rate 106 Total Creatine Kinase 70 66 Troponin I LESS THAN 0.02 0.02 Urine Color LIGHT-YELLOW Urine Turbidity CLEAR Urine pH 7.0 Urine Specific [place] 1.009 Urine Protein NEG Urine Glucose (UA) NEG Urine Ketones NEG Urine Occult Blood NEG Urine Nitrite NEG Urine Bilirubin NEG Urine Urobilinogen LESS THAN 2.0 Urine Leukocyte Esterase NEG Urine RBC 4-9 Urine WBC 0-2 Urine Squamous Epithelial Cells 0-5 Urine Bacteria OCC Urine Mucus FEW Microscopic Urinalysis Comment CULT NOT INDICATED Result Diagram: 08/05/1781108/05/17811 Imaging Last Impressions Chest X-Ray 08/05/17800 Signed Impressions: Service Date/Time: Saturday, August 05, 2017 08:23 - CONCLUSION: 1. No acute abnormality or significant interval change. Josh Mcguire MD Course EKG Ventricular paced rhythm Caprini VTE Risk Assessment Caprini VTE Risk Assessment: Mod/High Risk (score >= 2) Caprini Risk Assessment Model Point Value = 1 Point Value = 2 Point Value = 3 Point Value = 5 Age 41-60 Minor surgery BMI > 25 kg/m2 Swollen legs Varicose veins or History of unexplained or recurrent spontaneous Oral contraceptives or hormone replacement Sepsis (< 1 month) Serious lung disease, including pneumonia (< 1 month) Abnormal pulmonary function Acute myocardial infarction Congestive heart failure (< 1 month) History of inflammatory bowel disease Medical patient at bed rest Age 61-74 Arthroscopic surgery Major open surgery (> 45 min) Laparoscopic surgery (> 45 min) Malignancy Confined to bed (> 72 hours) Immobilizing plaster cast Central venous access Age >= 75 History of VTE Family history of VTE Factor V Leiden Prothrombin [id number] Lupus anticoagulant Anticardiolipin antibodies Elevated serum homocysteine Heparin-induced thrombocytopenia Other congenital or acquired thrombophilia Stroke (< 1 month) Elective arthroplasty Hip, pelvis, or leg fracture Acute spinal cord injury (< 1 month) Prophylaxis Regimen Total Risk Factor Score Risk Level Prophylaxis Regimen 0-1 Low Early ambulation 2 Moderate Order ONE of the following: *Sequential Compression Device (SCD) *Heparin 5000 units SQ BID 3-4 Higher Order ONE of the following medications: *Heparin 5000 units SQ TID *Enoxaparin/Lovenox 40 mg SQ daily (WT < 150 kg, CrCl > 30 mL/min) *Enoxaparin/Lovenox 30 mg SQ daily (WT < 150 kg, CrCl > 10-29 mL/min) *Enoxaparin/Lovenox 30 mg SQ BID (WT < 150 kg, CrCl > 30 mL/min) AND/OR *Sequential Compression Device (SCD) 5 or more Highest Order ONE of the following medications: *Heparin 5000 units SQ TID (Preferred with Epidurals) *Enoxaparin/Lovenox 40 mg SQ daily (WT < 150 kg, CrCl > 30 mL/min) *Enoxaparin/Lovenox 30 mg SQ daily (WT < 150 kg, CrCl > 10-29 mL/min) *Enoxaparin/Lovenox 30 mg SQ BID (WT < 150 kg, CrCl > 30 mL/min) AND *Sequential Compression Device (SCD) Assessment and Plan Assessment and Plan #1 Atypical chest pain-admitted chest pain center. Ruled out with 2 sets of EKGs and cardiac enzymes. Seen and evaluated by Dr. José Miguel Jacobs. Perceive a chemical stress test. If unremarkable, plans to discharge later this evening with follow-up with her PCP and hydrotechnical specialist. #2 Hypokalemia-30 mEq KCl in ER, 20 mEq given on arrival to chest pain center. Plans to discharge with prescription of 20 mg twice a day 2 days, follow-up with PCP for BMP. #3 Hypertension-continue amlodipine Urinalysis completed due to patient's concern over possible urinary tract infection which was unremarkable. Dr. Dahlia Rosen notified of patient's arrival chemical stress test completed and interrogation of pacemaker. Interrogation of pacemaker completed, no evidence of arrhythmias or problems with pacemaker. Patient notified. Jenn Braswell Aug 05, 2017 12:55
[2017-08-05] MEDS ORDERED: PILL SPLITTER OTHER PRN (13:15)
--- NOTE | 2017-08-05 14:29 | EKG ---
Date Performed: 08/05/2017 Time Performed: 08:16:09 PTAGE: 66 years EKG: ELECTRONIC VENTRICULAR PACEMAKER ABNORMAL RHYTHM ECG INTERPRETATION BASED ON A DEFAULT AGE OF 40 YEARS PREVIOUS TRACING : 03/06/2017 14.02 Since previous tracing, no significant change noted DOCTOR: José Miguel Jacobs Interpretating Date/Time 08/05/2017 14:27:47
--- NOTE | 2017-08-05 14:33 | EKG ---
Date Performed: 08/05/2017 Time Performed: 11:36:38 PTAGE: 66 years EKG: ELECTRONIC VENTRICULAR PACEMAKER ABNORMAL RHYTHM ECG PREVIOUS TRACING : 08/05/2017 08.16 Since previous tracing, no significant change noted DOCTOR: José Miguel Jacobs Interpretating Date/Time 08/05/2017 14:32:38
[2017-08-05] MEDS ORDERED: REGADENOSON INJ 0.4 MG/5 ML SYR ONE (15:54)
--- NOTE | 2017-08-05 17:08 | RADRPT ---
EXAM DATE/TIME: 08/05/2017 15:35 [facility] COMPARISON: No previous studies available for comparison. INDICATIONS : Substernal chest pain radiating across her chest to her shoulders and arms with dyspnea. Angina. DOSE: 25.8 mCi Tc99m Myoview at stress. 8.2 mCi Tc99m Myoview at rest. 0.4 mg Lexiscan STRESS SYMPTOMS: Headache. EJECTION FRACTION: 65% MEDICAL HISTORY : Gastroesophageal reflux disease. Hypercholesterolemia. Gastroesophageal reflux disease. Hypertension. SURGICAL HISTORY : Cholecystectomy. Pacemaker. Total knee replacement, right. ENCOUNTER: Initial ACUITY: 3 weeks PAIN SCALE: 5/10 LOCATION: Substernal chest TECHNIQUE: The patient underwent pharmacologic stress with infusion of prescribed dose. Continuous ECG tracing was monitored during stress. Gated SPECT imaging was performed after stress and conventional SPECT i maging was performed at rest. The examination was performed on a SPECT/CT scanner, both attenuation and non-corrected datasets were reviewed. FINDINGS: DISTRIBUTION: The maximum perfused segment at stress is in the anterolateral wall. PERFUSION STUDY: The pattern of perfusion at stress is within normal limits. No fixed or reversible perfusion defect i s identified. GATED STUDY: There is intact wall motion and thickening without hypokinetic or dyskinetic segments. CONCLUSION: 1. No fixed or reversible perfusion defect is identified. 2. Normal left ventricle wall motion and ejection fraction. RISK CATEGORY: Low (<1% Annual Mortality Rate) Ralph Olivera MD on August 05, 2017 at 17:05 Board Certified Radiologist. This report was verified electronically.
[2017-08-05] MEDS ORDERED: POTA-163 PO (17:15)
--- NOTE | 2017-08-05 17:45 | HHI.DCPOC ---
Discharge Care Plan Diagnosis: (1) History of pacemaker (2) Atypical chest pain (3) Hypokalemia Goals to Promote Your Health * To prevent worsening of your condition and complications * To maintain your health at the optimal level Directions to Meet Your Goals Take your medications as prescribed Follow your dietary instruction Follow activity as directed Keep your appointments as scheduled Take your immunizations and boosters as scheduled If your symptoms worsen call your PCP, if no PCP go to Urgent Care Center or Emergency Room Smoking is Dangerous to Your Health. Avoid second hand smoke Call the 24-hour hour crisis hotline for domestic abuse at Jenn Braswell Aug 05, 2017 17:45
[2017-08-05 18:42] VITALS: O2SAT 99
[2017-08-05] MEDS ORDERED: SODIUM CHLORIDE 0.9% FLUSH 10 ML FLUSH IV FLUSH SCH (21:00)
[2017-08-05] MEDS ORDERED: CITALOPRAM HYDROBROMIDE 20 MG TAB PO SCH (21:00)
[2017-08-05] MEDS ORDERED: POTASSIUM CHLORIDE 20 MEQ CONTROLLED RELEASE TAB PO SCH (21:00)
[2017-08-05] MEDS ORDERED: amLODIPine BESYLATE 5 MG TAB PO SCH (21:00)
--- NOTE | 2017-08-06 07:23 | TR ---
Date Performed: 08/05/2017 Time Performed: 16:12:20 DOCTOR: Dahlia Rosen DRUG LIST: CLINICAL HISTORY: REASON FOR TEST: REASON FOR ENDING: OBSERVATION: CONCLUSION: Lexiscan stress test was performed under standard four minute protocol. Radionuclid e was injected one minute prior to ending the test. No electrocardiographic abormalities were present to suggest ischemia. Nuclear imaging and interpretation are pending. COMMENTS:
[2017-08-06] MEDS ORDERED: ASPIRIN 325 MG TAB PO SCH (09:00)
== END 2017-08-05 19:51 | disposition home or self-care (01) ==
LOC: NEPC 07:36 → NEDA 09:08 → NEPHCDU 11:03
PROVIDERS: ADMIT Internal Medicine Cardiovascular Disease; ATTEND Internal Medicine Cardiovascular Disease
DX: R07.9 Chest pain, unspecified (principal); E87.6 Hypokalemia; I10 Essential (primary) hypertension; Z95.0 Presence of cardiac pacemaker; R06.02 Shortness of breath; J45.909 Unspecified asthma, uncomplicated; F41.9 Anxiety disorder, unspecified; F32.9 Major depressive disorder, single episode, unspecified; I45.10 Unspecified right bundle-branch block; E16.2 Hypoglycemia, unspecified; Z79.899 Other long term (current) drug therapy; R42 Dizziness and giddiness; K21.9 Gastro-esophageal reflux disease without esophagitis; I34.1 Nonrheumatic mitral (valve) prolapse; I44.30 Unspecified atrioventricular block; R94.31 Abnormal electrocardiogram [ECG] [EKG]
CPT/HCPCS: 71010; 78452; 80053; 81001; 82550; 84484; 85025; 85610; 85730; 93005; 93017; 99285; A9502; G0378; J2785

== ENCOUNTER 2017-09-28 07:03 | Observation (INO) | payer MEDICARE ==
[2017-09-28] VITALS (7 sets, daily range): BP systolic 120–156; BP diastolic 72–81; PULSE 72–106; RESP 18–22; TEMP 98.4; O2SAT 96–99
[~2017-09-28] VITALS: Ht 149.9 cm; Wt 67.0 kg
[~2017-09-28 07:03] MED LIST changes: +ALBUAER3 INH; -CARA1SUS3 PO; -CEPH-460 PO; +CRAN200C2; -DIFL150T PO; -DIPH25CA PO; +POTA-163 PO; -PROM25TA10 PO; -RANI150T PO
[2017-09-28 07:55] LABS: AUTOMATED NEUTROPHIL # 4.8 TH/MM3 (1.8-7.7); BASOPHIL # 0.1 TH/MM3 (0-0.2); BASOPHIL % 0.9 % (0.0-2.0); EOSINOPHIL % 0.7 % (0.0-4.0); HEMATOCRIT 42.2 % (35.0-46.0); HEMOGLOBIN 14.6 GM/DL (11.6-15.3); LYMPH % 23.4 % (9.0-44.0); LYMPHOCYTE # 1.6 TH/MM3 (1.0-4.8); MEAN CELL VOLUME 86.4 FL (80.0-100.0); MEAN CORPUSCULAR HEMOGLOBIN 29.9 PG (27.0-34.0); MEAN CORPUSCULAR HGB CONC 34.6 % (32.0-36.0); MEAN PLATELET VOLUME 8.5 FL (7.0-11.0); MONO % 5.5 % (0.0-8.0); MONOCYTE # 0.4 TH/MM3 (0-0.9); NEUT % 69.5 % (16.0-70.0); PLATELET COUNT 280 TH/MM3 (150-450); RED BLOOD COUNT 4.88 MIL/MM3 (4.00-5.30); RED CELL DISTRIBUTION WIDTH 13.4 % (11.6-17.2); WHITE BLOOD COUNT 6.9 TH/MM3 (4.0-11.0)
[2017-09-28 08:15] LABS: TROPONIN I LESS THAN 0.02 NG/ML (0.02-0.05)
--- NOTE | 2017-09-28 08:25 | RADRPT ---
EXAM DATE/TIME: 09/28/2017 07:42 [facility] COMPARISON: CHEST SINGLE AP, August 05, 2017, 8:23. INDICATIONS : Chest Pain with dizziness MEDICAL HISTORY : Gastroesophageal reflux disease. Hypercholesterolemia. Gastroesophageal reflux disease. Hypertension. SURGICAL HISTORY : Cholecystectomy. Pacemaker. Total knee replacement, right. ENCOUNTER: Initial ACUITY: 3 weeks PAIN SCORE: 5/10 LOCATION: Bilateral chest FINDINGS: Single AP view of the chest. Dual-lead cardiac pacemaker in place. Lungs are clear. Cardiomediastinal silhouette within normal limits. No evidence of pleural effusion or pneumothorax. CONCLUSION: No acute cardiopulmonary disease identified. Chele Carlos MD on September 28, 2017 at 8:22 Board Certified Radiologist. This report was verified electronically.
[2017-09-28 08:38] LABS: BICARBONATE 21.4 MEQ/L (21.0-32.0); BLOOD UREA NITROGEN 12 MG/DL (7-18); CALCIUM 9.1 MG/DL (8.5-10.1); CHLORIDE 107 MEQ/L (98-107); CREATININE 0.71 MG/DL (0.50-1.00); GLOMERULAR FILTRATION RATE 82 ML/MIN (>89); GLUCOSE,RANDOM 104 MG/DL (74-106); SODIUM (NA) 138 MEQ/L (136-145)
--- NOTE | 2017-09-28 08:39 | PD ---
HPI Chief Complaint: Chest Pain Time Seen by Provider: 08:23 Travel History International Travel<30 days: No Contact w/Intl Traveler<30days: No Traveled to known affect area: No History of Present Illness HPI 67-year-old female patient with history of hypertension, dizziness for the last 3 weeks for which she has seen her primary care doctor, was told that her blood pressure was dropping too low with her current blood pressure medicine, and had her blood pressure medications stopped on Saturday, presents to the ER today because she is still having dizziness. She states that it seems to worsen sometimes when she moves, or gets up. She denies any vomiting but has been nauseous and does not feel well. She states that she has had some tingling down her left hand. She also complains of some dyspnea on exertion at times and chest discomfort which she states is not truly a pain. She has had previous episodes of dizziness as well and had previously been told that it was due to potassium being low and another time for UTI. Modifying Factors: None Associated Signs & Symptoms: Dizziness, paresthesias, chest discomfort, nausea for the last 3 weeks Risk Factors: Dizziness episodes PFSH Past Medical History Asthma: Yes Anxiety: Yes Depression: Yes Heart Rhythm Problems: Yes (R BBB ) Cancer: No Cardiovascular Problems: Yes (PACEMAKER ) Chest Pain: Yes Diabetes: No Diminished Hearing: No Diverticulitis: Yes Endocrine: Yes (HYPOGLYCEMIA) Gastrointestinal Disorders: Yes (DIVERTICULOSIS) GERD: Yes Genitourinary: No Hepatitis: No Hiatal Hernia: Yes Hypertension: Yes Immune Disorder: Yes (MARKERS FOR LUPUS ) Medical other: No Musculoskeletal: Yes (ARTHRITIS, OSTEOPORISIS, (rt rotator cuff sx 2016)) Neurologic: Yes (POOR BALANCE) Psychiatric: Yes (DEPRESSION ,ANXIETY) Reproductive: No Respiratory: Yes (ASTHMA) Immunizations Current: Yes Thyroid Disease: No Menopausal: Yes Past Surgical History Abdominal Surgery: Yes (GALLBLADDER REMOVED) AICD: No Body Medical Devices: pacemaker Cholecystectomy: Yes Eye Surgery: Yes (BILAT CATARACTS) Gynecologic Surgery: Yes (HYSTERECTOMY) Hysterectomy: Yes Joint Replacement: Yes (RIGHT KNEE) Pacemaker: Yes Other Surgery: Yes (THYROID NODULE REMOVED) Family History Family Myocardial Infarction: Yes Social History Alcohol Use: Yes (RARE ) Tobacco Use: No Substance Use: No Allergies-Medications (Allergen,Severity, Reaction): Coded Allergies: hydromorphone (Unverified Allergy, Severe, Dizziness, 08/05/17) morphine (Unverified Allergy, Severe, NAUSEA CHEST PAIN, 08/05/17) ofloxacin (Unverified Allergy, Severe, RASH, 08/05/17) tramadol (Unverified Allergy, Severe, Dizziness, 08/05/17) codeine (Unverified Allergy, Intermediate, N/V/DIZZINESS, 08/05/17) Reported Meds & Prescriptions Reported Meds & Active Scripts Active Potassium Chloride ER (Potassium Chloride) 20 Meq Tab 20 Meq PO BID 2 Days Reported Proair Hfa 8.5 GM Inh (Albuterol Sulfate) 90 Mcg/Act Aer 1 Puff INH Q4H PRN 108 mcg/actuation Ellura (Cranberry (Vaccinium Macrocarpon)) 200 Mg Cap Lorazepam 0.5 Mg Tab 0.5 Mg PO TID PRN Citalopram (Citalopram Hydrobromide) 10 Mg Tab 10 Mg PO HS Amlodipine (Amlodipine Besylate) 5 Mg Tab 5 Mg PO HS Review of Systems Except as stated in HPI: all other systems reviewed are Neg Physical Exam Narrative GENERAL: Well developed elderly white female patient currently in mild distress. Awake and oriented 3. SKIN: Focused skin assessment warm/dry. HEAD: Atraumatic. Normocephalic. EYES: Pupils equal and round. No scleral icterus. No injection or drainage. ENT: No nasal bleeding or discharge. Mucous membranes pink and moist. NECK: Trachea midline. No JVD. Supple. CARDIOVASCULAR: Regular rate and rhythm. No murmur appreciated. Pulses are present and equal bilaterally. RESPIRATORY: No accessory muscle use. Clear to auscultation. Breath sounds equal bilaterally. GASTROINTESTINAL: Abdomen soft, non-tender, nondistended. Hepatic and splenic margins not palpable. MUSCULOSKELETAL: No obvious deformities. No clubbing. No cyanosis. No edema. NEUROLOGICAL: Awake and alert. No obvious cranial nerve deficits. Motor grossly within normal limits. Normal speech. PSYCHIATRIC: Appropriate mood and affect; insight and judgment normal. Data Data Last Documented VS Vital Signs Date Time Temp Pulse Resp B/P (MAP) Pulse Ox O2 Delivery O2 Flow Rate FiO2 09/28/17 08:10 97 20 122/72 (89) 97 Room Air Orders Orders Electrocardiogram (09/28/17 07:16) Complete Blood Count With Diff (09/28/17 07:16) Basic Metabolic Panel (Bmp) (09/28/17 07:16) Ckmb (Isoenzyme) Profile (09/28/17 07:16) Troponin I (09/28/17 07:16) Chest, Single Ap (09/28/17 07:16) Urinalysis - C+S If Indicated (09/28/17 08:24) Ct Brain W/O Iv Contrast(Rout) (09/28/17 08:24) Admit Order (Ed Use Only) (09/28/17 10:07) Labs Laboratory Tests Test 09/28/17 07:49 09/28/17 08:53 White Blood Count 6.9 TH/MM3 Red Blood Count 4.88 MIL/MM3 Hemoglobin 14.6 GM/DL Hematocrit 42.2 % Mean Corpuscular Volume 86.4 FL Mean Corpuscular Hemoglobin 29.9 PG Mean Corpuscular Hemoglobin Concent 34.6 % Red Cell Distribution Width 13.4 % Platelet Count 280 TH/MM3 Mean Platelet Volume 8.5 FL Neutrophils (%) (Auto) 69.5 % Lymphocytes (%) (Auto) 23.4 % Monocytes (%) (Auto) 5.5 % Eosinophils (%) (Auto) 0.7 % Basophils (%) (Auto) 0.9 % Neutrophils # (Auto) 4.8 TH/MM3 Lymphocytes # (Auto) 1.6 TH/MM3 Monocytes # (Auto) 0.4 TH/MM3 Eosinophils # (Auto) 0.0 TH/MM3 Basophils # (Auto) 0.1 TH/MM3 CBC Comment DIFF FINAL Differential Comment Blood Urea Nitrogen 12 MG/DL Creatinine 0.71 MG/DL Random Glucose 104 MG/DL Calcium Level 9.1 MG/DL Sodium Level 138 MEQ/L Potassium Level 3.5 MEQ/L Chloride Level 107 MEQ/L Carbon Dioxide Level 21.4 MEQ/L Anion Gap 10 MEQ/L Estimat Glomerular Filtration Rate 82 ML/MIN Total Creatine Kinase 68 U/L Troponin I LESS THAN 0.02 NG/ML Urine Color LIGHT-YELLOW Urine Turbidity CLEAR Urine pH 7.0 Urine Specific [place] 1.008 Urine Protein NEG mg/dL Urine Glucose (UA) NEG mg/dL Urine Ketones 10 mg/dL Urine Occult Blood TRACE Urine Nitrite NEG Urine Bilirubin NEG Urine Urobilinogen LESS THAN 2.0 MG/DL Urine Leukocyte Esterase NEG Urine RBC 1 /hpf Urine WBC 1 /hpf Urine Squamous Epithelial Cells <1 /hpf Microscopic Urinalysis Comment CULT NOT INDICATED MDM Medical Decision Making Medical Screen Exam Complete: Yes Emergency Medical Condition: Yes Medical Record Reviewed: Yes Interpretation(s) EKG shows sinus tachycardia rate of 100 bpm with a right bundle branch block pattern. Laboratory Tests Test 09/28/17 07:49 09/28/17 08:53 Estimat Glomerular Filtration Rate 82 ML/MIN (>89) Troponin I LESS THAN 0.02 NG/ML Urine Ketones 10 mg/dL (NEG) Urine Occult Blood TRACE (NEG) Last [address] 09/28/17823 Signed Impressions: Service Date/Time: Thursday, September 28, 2017 09:04 - CONCLUSION: No acute intracranial findings. Chele Carlos MD Chest X-Ray 09/28/17715 Signed Impressions: Service Date/Time: Thursday, September 28, 2017 07:42 - CONCLUSION: No acute cardiopulmonary disease identified. Chele Carlos MD Differential Diagnosis Lightheadedness, nausea, left arm paresthesias, chest discomfort: Dehydration versus metabolic issues versus dysrhythmias versus vertigo versus acute intracranial processes versus ACS Narrative Course EKG did not show any significant dysrhythmias. Cardiac enzymes are negative. Metabolic panel is unremarkable. Patient has no focal neurological deficits. CT of the brain did not show any signs of acute intra-cranial processes. And at this point, considering her history of cardiac issues, my plan would be to admit her for further evaluation of her chest discomfort. Diagnosis Primary Impression: Lightheadedness Additional Impression: Atypical chest pain Admitting Information Admitting Physician Requests: Admit Breana Moore MD Sep 28, 2017 08:39
[2017-09-28 09:18] LABS: BILIRUBIN, URINE NEG (NEG); BLOOD, URINE TRACE (NEG); GLUCOSE,URINE NEG (NEG); KETONE, URINE 10 mg/dL (NEG); NITRITE,URINE NEG (NEG); SQUAMOUS EPITHELIAL CELL URINE <1 /hpf (0-5); URINE COLOR LIGHT-YELLOW (YELLW/STRAW); URINE LEUKOCYTE ESTERASE NEG (NEG)
--- NOTE | 2017-09-28 09:21 | RADRPT ---
EXAM DATE/TIME: 09/28/2017 09:04 [facility] COMPARISON: No previous studies available for comparison. INDICATIONS : Dizziness, occipital cephalgia and left hand numbness today. RADIATION DOSE: 33.32 CTDIvol (mGy) MEDICAL HISTORY : Hypertension. SURGICAL HISTORY : Pacemaker. Hysterectomy. ENCOUNTER: Initial ACUITY: 1 day PAIN SCALE: 5/10 LOCATION: Bilateral occipital head TECHNIQUE: Multiple contiguous axial images were obtained of the head. Using automated exposure control and adj ustment of the mA and/or kV according to patient size, radiation dose was kept as low as reasonably a chievable to obtain optimal diagnostic quality images. DICOM format image data is available electro nically for review and comparison. FINDINGS: CEREBRUM: The ventricles are normal for age. No evidence of midline shift, mass lesion, hemorrhage or acute in farction. No extra-axial fluid collections are seen. POSTERIOR FOSSA: The cerebellum and brainstem are intact. The 4th ventricle is midline. The cerebellopontine angle i s unremarkable. EXTRACRANIAL: The visualized portion of the orbits is intact. SKULL: The calvaria is intact. No evidence of skull fracture. CONCLUSION: No acute intracranial findings. Chele Carlos MD on September 28, 2017 at 9:15 Board Certified Radiologist. This report was verified electronically.
[2017-09-28] MEDS ORDERED: ALBUTEROL SULFATE 90 MCG/ACT HFA 8 GM INHALER INH PRN (11:30)
--- NOTE | 2017-09-28 11:56 | HHI.HP ---
[facility] Service Family Medicine Primary Care Physician Piper Ferraro MD Admission Diagnosis chest pain/dizziness Diagnoses: Chief Complaint: dizzy and chest pain International Travel<30 Days: No Contact w/Intl Traveler<30days: No Known Affected Area: No History of Present Illness Ms Mehta is a 67YO female w/PMHx hiatal hernia, fibromyalgia, lupus, and total AV block s/p pacemaker placement in May 2016 who presents with 3 weeks of intermittent dizziness and 1 day of epigastric vs substernal CP w/o exertion. Her dizzy spells occur at no particular time of day which are sometimes accompanied with SOB. The pt feels weak but not ready to pass out and there is no LOC. The pt last fell in June but she tripped and was not dizzy at the time. She does not become dizzy when transferring from supine to sitting or sitting to standing. Last night she began having epigastric/substernal CP at rest in bed with some diaphoresis but the spell abated spontaneously. There is no radiation of the CP. She had no palpitations at the time. The CP started again this morning and she notes some increase in discomfort when she presses just below her xiphoid or above her umbilicus. The CP is a 5/10 on pain scale, the worst pain she has had since getting a pacemaker in May 2016. She is followed by Dr Rosen and has an appt to follow up on Saturday. She saw Dr Ferraro, her PCP, Saturday and was hypotensive at that visit, so her amlodipine was stopped at that time. She also takes Celexa for anxiety and as a sleep aid. She was dx in February 2017 with a hiatal hernia and gastritis by Dr Mon (did EGD) , but does not complain of heartburn or reflux sxs. Indicates she had a cough two weeks ago. Additionally, she had similar sxs of dizziness in July and was hospitalized requiring a chemical cardiac stress test that was normal. Has 30 lb wt loss over last year and some numbness in her left hand. Denies N/V/D, DVT pain. Review of Systems Constitutional: COMPLAINS OF: Diaphoretic episodes, Fatigue, Weight loss (30 lbs in last year), Dizziness, DENIES: Fever, Chills Eyes: DENIES: Blurred vision, Eye pain, Double Vision Ears, nose, mouth, throat: DENIES: Tinnitus, Hearing loss, Nasal discharge, Oral lesions, Throat pain, Hoarseness, Running Nose Respiratory: COMPLAINS OF: Cough, Sputum production (clear or yellow but improving), Shortness of breath, DENIES: Wheezing Cardiovascular: COMPLAINS OF: Chest pain, Dyspnea on Exertion, DENIES: Palpitations, Syncope Gastrointestinal: COMPLAINS OF: Abdominal pain (epigastric), Nausea (this morning), DENIES: Black stools, Bloody stools, Diarrhea, Vomiting Genitourinary: COMPLAINS OF: Urinary frequency, Nocturia (1-2x a night), DENIES : Urinary incontinence, Hematuria Musculoskeletal: COMPLAINS OF: Joint pain (fibromyalgia) Integumentary: DENIES: Pruritus, Rash Hematologic/lymphatic: COMPLAINS OF: Bruising, DENIES: Lymphadenopathy (last 2 days above right eye) Neurologic: COMPLAINS OF: Headache, Paresthesias (left palm), DENIES: Seizures Past Family Social History Past Medical History TIA Aug 2016 with transient loss of vision bilaterally Lupus (no meds) fibromyalgia hiatal hernia diverticulitis 20 years ago Past Surgical History pacemaker placed due to total AV block May 2016 -[employer]. Model # [id number] serial number [id number]. The right atrial pacing and sensing lead is a [employer] model number 1688TC-51, serial number [id number]. The right ventricular pacing and sensing lead is a [employer] model number 1688TC- 58, serial number [id number]. bilateral cataract surgery complete hysterectomy total right knee replacement cervical lymph node removal for cat scratch fever cholecystectomy left shoulder rotator cuff repair Allergies: Coded Allergies: hydromorphone (Unverified Allergy, Severe, Dizziness, 08/05/17) morphine (Unverified Allergy, Severe, NAUSEA CHEST PAIN, 08/05/17) ofloxacin (Unverified Allergy, Severe, RASH, 08/05/17) tramadol (Unverified Allergy, Severe, Dizziness, 08/05/17) codeine (Unverified Allergy, Intermediate, N/V/DIZZINESS, 08/05/17) Active Ordered Medications Reported Meds & Active Scripts Active Potassium Chloride ER (Potassium Chloride) 20 Meq Tab 20 Meq PO BID 2 Days Reported Proair Hfa 8.5 GM Inh (Albuterol Sulfate) 90 Mcg/Act Aer 1 Puff INH Q4H PRN 108 mcg/actuation Ellura (Cranberry (Vaccinium Macrocarpon)) 200 Mg Cap Lorazepam 0.5 Mg Tab 0.5 Mg PO TID PRN Citalopram (Citalopram Hydrobromide) 10 Mg Tab 10 Mg PO HS Amlodipine (Amlodipine Besylate) 5 Mg Tab 5 Mg PO HS Family History Mother - alive, hypothyroid Father - HTN, of esophageal cancer 2 sisters have diabetes, one sister with breast cancer Social History EtOH - occasional (1-2 times a year) Never smoker - no tobacco No drugs Lives with in [place] relocated here from [place] 4 years ago 2 daughters, one in [place] and one in [place] has 1 dog Physical Exam Vital Signs Vital Signs Date Time Temp Pulse Resp B/P (MAP) Pulse Ox O2 Delivery O2 Flow Rate FiO2 09/28/17 11:14 99 21 09/28/17 08:10 97 20 122/72 (89) 97 Room Air 09/28/17 07:54 106 20 156/78 (104) 99 Room Air Physical Exam GENERAL: This is a well-nourished, well-developed patient, in no apparent distress lying in bed. SKIN: No rashes, ecchymoses or lesions. Cool and dry. HEAD: Atraumatic. Normocephalic. No temporal tenderness. EYES: Pupils equal round and reactive. Extraocular motions intact. No scleral icterus. No injection or drainage. ENT: Nose without bleeding, drainage or rhinorrhea. Throat without erythema, tonsillar hypertrophy or exudate. Uvula midline. Airway patent. NECK: Trachea midline. Mild lymphadenopathy in upper left anterior neck, mildly TTP. Otherwise, supple, tender, no meningeal signs. CARDIOVASCULAR: Intermittently irregular rate rhythm without murmur, gallop, or rub. RESPIRATORY: Clear to auscultation. Breath sounds equal bilaterally. No wheezes , rales, or rhonchi. GASTROINTESTINAL: Abdomen soft, non-tender, nondistended. No hepato-splenomegaly , or palpable masses. No guarding. MUSCULOSKELETAL: Extremities without clubbing, cyanosis, or edema. No joint tenderness, effusion, or edema noted. No calf tenderness. NEUROLOGICAL: Awake and alert. Cranial nerves II through XII intact. Motor and sensory grossly within normal limits. Five out of 5 muscle strength in all muscle groups. Normal speech. Laboratory Laboratory Tests Test 09/28/17 07:49 09/28/17 08:53 White Blood Count 6.9 Red Blood Count 4.88 Hemoglobin 14.6 Hematocrit 42.2 Mean Corpuscular Volume 86.4 Mean Corpuscular Hemoglobin 29.9 Mean Corpuscular Hemoglobin Concent 34.6 Red Cell Distribution Width 13.4 Platelet Count 280 Mean Platelet Volume 8.5 Neutrophils (%) (Auto) 69.5 Lymphocytes (%) (Auto) 23.4 Monocytes (%) (Auto) 5.5 Eosinophils (%) (Auto) 0.7 Basophils (%) (Auto) 0.9 Neutrophils # (Auto) 4.8 Lymphocytes # (Auto) 1.6 Monocytes # (Auto) 0.4 Eosinophils # (Auto) 0.0 Basophils # (Auto) 0.1 CBC Comment DIFF FINAL Differential Comment Blood Urea Nitrogen 12 Creatinine 0.71 Random Glucose 104 Calcium Level 9.1 Sodium Level 138 Potassium Level 3.5 Chloride Level 107 Carbon Dioxide Level 21.4 Anion Gap 10 Estimat Glomerular Filtration Rate 82 Total Creatine Kinase 68 Troponin I LESS THAN 0.02 Urine Color LIGHT-YELLOW Urine Turbidity CLEAR Urine pH 7.0 Urine Specific [place] 1.008 Urine Protein NEG Urine Glucose (UA) NEG Urine Ketones 10 Urine Occult Blood TRACE Urine Nitrite NEG Urine Bilirubin NEG Urine Urobilinogen LESS THAN 2.0 Urine Leukocyte Esterase NEG Urine RBC 1 Urine WBC 1 Urine Squamous Epithelial Cells <1 Microscopic Urinalysis Comment CULT NOT INDICATED Result Diagram: 09/28/17 0749 09/28/17 0749 Imaging Last Impressions Head CT 09/28/17 0824 Signed Impressions: Service Date/Time: Thursday, September 28, 2017 09:04 - CONCLUSION: No acute intracranial findings. Chele Carlos MD Chest X-Ray 09/28/17 0716 Signed Impressions: Service Date/Time: Thursday, September 28, 2017 07:42 - CONCLUSION: No acute cardiopulmonary disease identified. Chele Carlos MD Septic Shock Reassessment Septic shock perfusion: reassessment completed Caprini VTE Risk Assessment Caprini VTE Risk Assessment: Mod/High Risk (score >= 2) Caprini Risk Assessment Model Point Value = 1 Point Value = 2 Point Value = 3 Point Value = 5 Age 41-60 Minor surgery BMI > 25 kg/m2 Swollen legs Varicose veins or History of unexplained or recurrent spontaneous Oral contraceptives or hormone replacement Sepsis (< 1 month) Serious lung disease, including pneumonia (< 1 month) Abnormal pulmonary function Acute myocardial infarction Congestive heart failure (< 1 month) History of inflammatory bowel disease Medical patient at bed rest Age 61-74 Arthroscopic surgery Major open surgery (> 45 min) Laparoscopic surgery (> 45 min) Malignancy Confined to bed (> 72 hours) Immobilizing plaster cast Central venous access Age >= 75 History of VTE Family history of VTE Factor V Leiden Prothrombin [id number] Lupus anticoagulant Anticardiolipin antibodies Elevated serum homocysteine Heparin-induced thrombocytopenia Other congenital or acquired thrombophilia Stroke (< 1 month) Elective arthroplasty Hip, pelvis, or leg fracture Acute spinal cord injury (< 1 month) Prophylaxis Regimen Total Risk Factor Score Risk Level Prophylaxis Regimen 0-1 Low Early ambulation 2 Moderate Order ONE of the following: *Sequential Compression Device (SCD) *Heparin 5000 units SQ BID 3-4 Higher Order ONE of the following medications: *Heparin 5000 units SQ TID *Enoxaparin/Lovenox 40 mg SQ daily (WT < 150 kg, CrCl > 30 mL/min) *Enoxaparin/Lovenox 30 mg SQ daily (WT < 150 kg, CrCl > 10-29 mL/min) *Enoxaparin/Lovenox 30 mg SQ BID (WT < 150 kg, CrCl > 30 mL/min) AND/OR *Sequential Compression Device (SCD) 5 or more Highest Order ONE of the following medications: *Heparin 5000 units SQ TID (Preferred with Epidurals) *Enoxaparin/Lovenox 40 mg SQ daily (WT < 150 kg, CrCl > 30 mL/min) *Enoxaparin/Lovenox 30 mg SQ daily (WT < 150 kg, CrCl > 10-29 mL/min) *Enoxaparin/Lovenox 30 mg SQ BID (WT < 150 kg, CrCl > 30 mL/min) AND *Sequential Compression Device (SCD) Assessment and Plan Assessment and Plan 67YO female w/PMHx of hiatal hernia, fibromyalgia, lupus, and total AV block s/ p pacemaker placement in May 2016 who presents with 3 weeks of intermittent dizziness and 1 day of epigastric vs substernal CP w/o exertion. Pt had a similar presentation in July 2017 for 3 weeks of dizziness. Troponins <0.02 x2; but abnormal EKG. Consider Cardiac vs neurological etiology for dizziness and cardiac vs GI for the chest/epigastric pain. DDx: pacemaker dysfunction vs vs gastritis for CP and vertigo vs autonomic/vagal instability for dizziness. Also cannot r/o thyroid. Pt seen and dw Dewayne Hameed and Ekyoseph Code Status FULL CODE; is HCPOA Problem List: (1) Atypical chest pain ICD Codes: R07.89 - Other chest pain Plan: Substernal vs epigastric CP 5/10 on pain scale that pt states feels the same as pain she experienced prior to getting her current pacemaker; there is no radiation, or vomiting, but was nauseous for a short period; describes episode of diaphoresis last night -Neg ACS w/u: Troponins x2 <0/02; total CK 68; BNP 51 -CRP 0.38 -Lipase 91 -TSH 3.8 -Free T4 1.31 -UA neg for infection, but trace occult blood and ketones -CBC wnl -CXR neg -Cardiology consult; she is followed by Dr Rosen -EKG: SINUS TACHYCARDIA WITH FIRST DEGREE AV BLOCK RIGHT BUNDLE BRANCH BLOCK Compared to previous tracing, ventricular pacing is not present compared to the prior ABNORMAL ECG -Echo -Started protonix 40mg PO daily -Tele -Will consider GI w/u after trial of protonix (2) Lightheadedness ICD Codes: R42 - Dizziness and giddiness Status: Acute Plan: Describes 3-4 weeks of being intermittently dizzy/lightheaded with no accompanying falls or LOC. Similar presentation in July 2017 with normal chemical stress test, non-exertional; describes TIA 2 years ago preceded by transient loss of vision (both eyes) for short period of time -CT head no acute findings -CXR neg -US carotids w/minimal plaque and no evidence of stenosis -Elevated TSH 3.8, normal Free T4 1.31 -Describes left hand tremor and small intention tremor in bilateral hands/UEs -Consider thyroid US -Neurology consult to pursue vertigo -Cardiology consult -EEG (3) AV block ICD Codes: I44.30 - Unspecified atrioventricular block Status: Acute Plan: Pacemaker/defibrillator placed in May 2016 for total AV Block; auscultation reveals irregular HR and rhythm EKG 09/28/17 w/SINUS TACHYCARDIA WITH FIRST DEGREE AV BLOCK RIGHT BUNDLE BRANCH BLOCK Compared to previous tracing, ventricular pacing is not present compared to the prior ABNORMAL ECG -Contact [employer] pacemaker company to interrogate pacer to ensure normal functioning (4) Asthma ICD Codes: J45.909 - Asthma Status: Acute Plan: Continue home Proair 1 puff INH q4h PRN; pt describes using inhaler almost daily (5) Anxiety and depression ICD Codes: F32.9 - Major depressive disorder, single episode, unspecified; F41.9 - Anxiety and depression Status: Acute Plan: Continue home dose celexa 10mg qhs (6) FEN/GI/PPx Plan: Fluids: PO fluids Electrolytes: monitor daily labs; replete as necessary Nutrition: Heart healthy diet GI: Start protonix 40mg PO PPx: Lovenox 40mg daily subcu Tylenol 650mg PO PRN pain/fever Sergey Fisher MD R1 Sep 28, 2017 11:56
[2017-09-28] MEDS ORDERED: ACETAMINOPHEN 325 MG TAB PO PRN (12:30)
[2017-09-28] MEDS ORDERED: PANTOPRAZOLE SOD 40 MG DELAYED RELEASE TAB PO SCH (12:45)
[2017-09-28 14:12] LABS: C-REACTIVE PROTEIN 0.38 MG/DL (0.00-0.30); CHOLESTEROL 209 MG/DL (120-200); TRIGLYCERIDES 51 MG/DL (42-150)
--- NOTE | 2017-09-28 14:20 | RADRPT ---
EXAM DATE/TIME: 09/28/2017 13:37 [facility] COMPARISON: No previous studies available for comparison. INDICATIONS : Syncope. MEDICAL HISTORY : Hypertension. Gastroesophageal reflux disease. Fibromyalgia. Hyperlipidemia. Asthma. Diverticulitis . Dyspnea. Hiatal hernia. Depression. Anxiety. Hypoglycemia. SURGICAL HISTORY : Pacemaker. Cholecystectomy. Hysterectomy. Bilateral cataract surgery. Right knee replacement. Thyroid nodule removed. ENCOUNTER: Initial ACUITY: 1 day PAIN SCORE: 0/10 LOCATION: Bilateral neck PEAK SYSTOLIC VELOCITIES (cm/sec): ICA/CCA RATIO: Right: 0.9 Left: 1.1 ICA: Right: 74.7 Left: 79.9 CCA: Right: 79.8 Left: 73.3 ECA: Right: 59.0 Left: 78.5 VERTEBRAL: Right: 35.4 antegrade Left: 52.7 antegrade Elevated flow velocities and ICA/CCA ratios have been found to correlate with increased degrees of vessel stenosis, calculated as percentage of diameter relative to a normal segment of distal ICA/CCA FINDINGS: RIGHT CAROTID: No significant stenosis is visualized. Minimal plaque is present. The waveforms are within normal li mits. LEFT CAROTID: No significant stenosis is visualized. Minimal plaque is present. The waveforms are within normal li mits. VERTEBRAL ARTERIES: Antegrade flow is seen in both vertebral arteries. MISCELLANEOUS: None. CONCLUSION: Minimal plaque with no evidence of stenosis. Devin oSsa MD on September 28, 2017 at 14:15 Board Certified Radiologist. This report was verified electronically.
[2017-09-28 14:21] LABS: CHOLESTEROL/ HDL RATIO 2.95 RATIO; FREE T4 1.31 NG/DL (0.76-1.46); HDL CHOLESTEROL 70.8 MG/DL (40.0-60.0); LDL CHOLESTEROL 128 MG/DL (0-99); TROPONIN I LESS THAN 0.02 NG/ML (0.02-0.05)
[2017-09-28] MEDS ORDERED: IOHEXOL 350 MG/ML 10 ML VIAL (for RAD DIAG) IVCONTRAST ONE (15:00)
--- NOTE | 2017-09-28 16:43 | EKG ---
Date Performed: 09/28/2017 Time Performed: 07:24:07 PTAGE: 67 years EKG: SINUS TACHYCARDIA WITH FIRST DEGREE AV BLOCK RIGHT BUNDLE BRANCH BLOCK Compared to previous tracing, ventricular pacing is not present compared to the prior ABNORMAL ECG PREVIOUS TRACING : 08/05/2017 11.36 DOCTOR: Sean Lugo Interpretating Date/Time 09/28/2017 16:43:13
--- NOTE | 2017-09-28 18:01 | MB ---
cc: ARCELIA GRAYSON DATE OF CONSULTATION 09/28/17 REASON FOR CONSULTATION Evaluation of chest discomfort. HISTORY OF PRESENT ILLNESS Anika Mehta is a 67-year-old patient of Dr. Rosen. She has been having intermittent dizziness for the past three weeks that will last anywhere from 30 minutes to several hours and it comes and goes. She cannot really describe it as lightheadedness or vertigo. She has had this longstanding and etiology for it has remained unclear. She had some chest discomfort described as a tightness, lasting about 10-15 minutes last night and also this morning occurring at rest. She said she has not had this before but she has had previous evaluations with nuclear stress test including March 14, 2015 and August 05, 2017 that were both normal. She has a history of previous high-grade AV block and has a [employer] dual-chamber pacemaker. When last checked it showed normal function. She has had some borderline hypertension in the past. She was on amlodipine and that has been discontinued. She is on no antihypertensives at this time. She takes Citalopram and lorazepam. She has been diagnosed with hiatal hernia by Dr. Bellamy by EGD, has been on Zantac in the past but not currently. PAST MEDICAL HISTORY 1. Asthma, 2. Depression, 3. Diverticulosis, 4. Dyslipidemia, 5. Fibromyalgia, 6. Gastroesophageal reflux disease, 7. Osteopenia 8. Very brief episodes of PSVT 9. Scoliosis PAST SURGICAL HISTORY 1. Bilateral cataract surgery, 2. Cholecystectomy, 3. Hysterectomy, 4. Right knee replacement 5. Cervical lymph node removal 6. Thyroid nodule removal 7. Left rotator cuff repair. ALLERGIES HYDROMORPHONE MORPHINE FLOXACIN TRAMADOL CODEINE MEDICATIONS Current, 1. Pro-Air 2. Lorazepam. 3. Citalopram 4. Amlodipine has been stopped. FAMILY HISTORY Father had a heart attack and stroke. She was estranged and does not known much more details. Mother had cancer. SOCIAL HISTORY Nonsmoker, nondrinker. PHYSICAL EXAMINATION GENERAL: A well-developed, mildly overweight pleasant white female in no acute distress. VITAL SIGNS: Charted. HEENT: Exam unremarkable. NECK: No JVD, no bruits. CHEST: Clear to auscultation. CARDIAC: Normal S1-S2 regular rate and rhythm. No murmurs, gallops. ABDOMEN: Shows some mild epigastric tenderness. EXTREMITIES: No clubbing, cyanosis or edema. Pulses are intact. IMAGING STUDIES Head CT is unremarkable. Chest x-ray is unremarkable. LABORATORY DATA CBC is normal. Creatinine is 0.71. Troponins are normal. Cholesterol is 209, LDL 128. HDL 70.8, triglycerides 51. TSH elevated at 3.8. CARDIOLOGY STUDIES EKG shows sinus tachycardia, right bundle branch block with secondary ST-T wave changes. There is no V pacing like her other tracings. IMPRESSION AND PLAN Chest pain, etiology unclear. She has had a negative nuclear stress test, was non-exertional. She has epigastric tenderness question whether may it may be gastritis related. She has dizziness, etiology of this is also unclear. Vertigo might be the most likely possibility. Recommend a neurology consult to help evaluate. She has already ruled out for VA. Would recommend placing her on stomach medication with a negative stress test and two isolated episodes of epigastric tenderness. I would see how she responded to Zantac before doing anything further. Coronary CT might be an option. We will follow. MD ARAMIS Bustillos/ /5:01 PM /5:25 PM
--- NOTE | 2017-09-28 20:43 | HHI.FPPN ---
Subjective Subjective Patient seen and examined. Case reviewed and discussed Please refer to resident H&P for further details regarding HPI, ROS, PMH, SurgHx , FH and SocHx In summary, patient is a pleasant 67yoF presenting with progressive episodes of lightheadedness over the past 3 weeks. She is s/p PM for complete AV block and well known to Dr. Rosen. Patient was prompted to come to the ED after 2 episodes of non-exertional chest pain. She reports each episode lasted about 15 minutes. She was unable to sleep last night because "she just didn't feel right" Of note, the patient has been undergoing work-up, including nuclear stress which was unremarkable. Patient is resting in bed at the time of our encounter and is chest pain free. She does note a different pain over the epigastric region which she attributes to her hiatal hernia diagnosed by Dr. Bellamy. [facility] Objective Objective Last Impressions Head CT 09/28/17 0824 Signed Impressions: Service Date/Time: Thursday, September 28, 2017 09:04 - CONCLUSION: No acute intracranial findings. Chele Carlos MD Chest X-Ray 09/28/17 0716 Signed Impressions: Service Date/Time: Thursday, September 28, 2017 07:42 - CONCLUSION: No acute cardiopulmonary disease identified. Chele Carlos MD Carotid Artery Ultrasound 09/28/17 0000 Signed Impressions: Service Date/Time: Thursday, September 28, 2017 13:37 - CONCLUSION: Minimal plaque with no evidence of stenosis. Devin Sosa MD Laboratory Tests - Abnormals Test 09/28/17 07:49 09/28/17 08:53 Estimat Glomerular Filtration Rate 82 ML/MIN Troponin I LESS THAN 0.02 NG/ML C-Reactive Protein 0.38 MG/DL Cholesterol Level 209 MG/DL LDL Cholesterol 128 MG/DL HDL Cholesterol 70.8 MG/DL Thyroid Stimulating Hormone 3rd Gen 3.800 uIU/ML Urine Ketones 10 mg/dL Urine Occult Blood TRACE Vital Signs 09/28/17 09/28/17 09/28/17 09/28/17 07:54 08:10 11:14 12:29 Pulse 106 97 92 Resp 20 20 18 B/P (MAP) 156/78 (104) 122/72 (89) 147/81 (103) Pulse Ox 99 97 99 98 O2 Delivery Room Air Room Air Room Air FiO2 21 09/28/17 09/28/17 09/28/17 09/28/17 14:03 16:40 17:16 17:55 Temp 98.4 Pulse 72 93 78 Resp 18 22 B/P (MAP) 120/73 (89) 130/79 (96) Pulse Ox 99 96 O2 Delivery Room Air INTAKE & OUTPUT 09/29/17 06:59 Intake Total 240 ml Balance 240 ml Physical exam GENERAL: wdwn female SKIN: Warm and dry. No rashes, lesions HEAD: Normocephalic. AT EYES: No scleral icterus. No injection or drainage. ENT: OP Clear. MMM NECK: Supple, trachea midline. No JVD or lymphadenopathy. No carotid bruits CARDIOVASCULAR: Regular rate and rhythm without murmurs, gallops, or rubs. PM anterior chest without induration. RESPIRATORY: Breath sounds equal and clear to auscultation bilaterally. No accessory muscle use. GASTROINTESTINAL: Abdomen soft, non-tender, nondistended. Normal active BS MUSCULOSKELETAL: No cyanosis, or edema. No calf tenderness. BACK: Nontender without obvious deformity. No CVA tenderness. NEURO Awake and alert. Normal speech. CN grossly intact. No nystagmus. Strength 5/5 x 4. Assessment Assessment 67yoF with: Chest pain Lightheadedness PM placement s/p AV block HTN Hiatal hernia PLAN PLAN r/o ACS with ekg, CE Cardiology consult- patient well known to Dr. Rosen 2D echo Orthostatics Carotid ultrasound PM interrogation Protonix for possible GI source of discomfort Resume home meds as appropriate Monitor BP, HR Telemetry TSH UA PT consult Consider EEG, MRI/MRA Brain Patient seen and examined. Case reviewed and discussed Agree with plan of care as discussed with me and documented in the resident note. Khushi Hameed MD Sep 28, 2017 20:43
[2017-09-29] VITALS (9 sets, daily range): BP systolic 97–174; BP diastolic 53–84; PULSE 82–100; RESP 18; TEMP 96–98.7; O2SAT 94–98
[2017-09-29] MEDS: CITALOPRAM HYDROBROMIDE 20 MG TAB PO SCH ×2 (00:52→20:59)
[2017-09-29] MEDS: ENOXAPARIN SODIUM 40 MG/0.4 ML SYRINGE SQ SCH ×2 (00:53→20:59)
--- NOTE | 2017-09-29 07:53 | MG ---
cc: TEODORO RAMIREZ MD Sex: F DATE OF 1950 MEDICAL HISTORY Hypoglycemia, GERD, hiatal hernia, lupus, arthritis, osteoporosis, thyroid nodule removed, alcohol abuse, dyspnea on exertion, dizzy spells, worse when she stands up, anxiety and depression, pacemaker, chest pain. MEDICATIONS 1. Lorazepam. 2. Citalopram. 3. Amlodipine. 4. Potassium. 5. Celexa. DESCRIPTION The background activity is 10-11 Hz alpha located posteriorly superimposed by excess beta activity during the recording. The EEG recording is contaminated by excessive muscle and movement artifact. Hyperventilation was omitted. Photic station did not elicit driving response. There were no electrographic seizures or epileptiform discharges noted during the recording. INTERPRETATION This is a normal awake EEG. Beta activity is non specific finding, may be related to medication adverse effects, like Benzos and barbiturates. The EEG recording is contaminated by excess muscle and movement artifact. There were no electrographic seizures or epileptiform discharges noted during the recording. Teodoro Ramirez MD [facility]/JACOB /11:42 PM /6:59 AM MTDEve
[2017-09-29] MEDS: PANTOPRAZOLE SOD 40 MG DELAYED RELEASE TAB PO SCH (08:33)
[2017-09-29] MEDS: ONDANSETRON ODT 4 MG TAB PO PRN (08:33)
[2017-09-29 09:05] LABS: BICARBONATE 24.9 MEQ/L (21.0-32.0); CALCIUM 8.7 MG/DL (8.5-10.1); CREATININE 0.65 MG/DL (0.50-1.00)
[2017-09-29 09:48] LABS: AUTOMATED NEUTROPHIL # 1.8 TH/MM3 (1.8-7.7); EOSINOPHIL # 0.3 TH/MM3 (0-0.4); EOSINOPHIL % 5.3 % (0.0-4.0); HEMATOCRIT 39.7 % (35.0-46.0); HEMOGLOBIN 13.2 GM/DL (11.6-15.3); LYMPH % 50.1 % (9.0-44.0); LYMPHOCYTE # 2.6 TH/MM3 (1.0-4.8); MEAN CORPUSCULAR HEMOGLOBIN 28.9 PG (27.0-34.0); MEAN CORPUSCULAR HGB CONC 33.2 % (32.0-36.0); MONO % 8.7 % (0.0-8.0); MONOCYTE # 0.4 TH/MM3 (0-0.9); NEUT % 34.9 % (16.0-70.0); PLATELET COUNT 234 TH/MM3 (150-450); RED BLOOD COUNT 4.56 MIL/MM3 (4.00-5.30); RED CELL DISTRIBUTION WIDTH 13.9 % (11.6-17.2); WHITE BLOOD COUNT 5.1 TH/MM3 (4.0-11.0)
--- NOTE | 2017-09-29 09:59 | PD.CARD.PN ---
Subjective Subjective Remarks C/o dizziness earlier. Other episodes with turning white with nausea Objective Medications Current Medications Medications (Trade) Dose Ordered Sig/Celine Route Start Time Stop Time Status Last Admin (Proair Hfa Inh) 1 puff Q4H PRN INH 09/28/17 11:30 (CeleXA) 10 mg HS PO 09/28/17 21:00 09/29/17 00:52 (Tylenol) 650 mg Q6H PRN PO 09/28/17 12:30 (Protonix) 40 mg DAILY PO 09/29/17 09:00 09/29/17 08:33 (Lovenox Inj) 40 mg Q24H SQ 09/28/17 21:00 09/29/17 00:53 (Zofran Odt) 4 mg Q6H PRN PO 09/29/17 03:15 09/29/17 08:33 Vital Signs / I&O Vital Signs Date Time Temp Pulse Resp B/P (MAP) Pulse Ox O2 Delivery O2 Flow Rate FiO2 09/29/17 09:00 98 21 09/29/17 08:31 97.4 100 18 122/81 (95) 96 09/29/17 04:43 98.7 92 18 140/75 (96) 96 09/29/17 02:48 21 09/29/17 00:00 97.8 82 18 174/84 (114) 97 09/28/17 17:55 78 09/28/17 17:16 98.4 93 22 130/79 (96) 96 09/28/17 16:40 09/28/17 14:03 72 18 120/73 (89) 99 Room Air 09/28/17 12:29 92 18 147/81 (103) 98 Room Air 09/28/17 11:14 99 21 I/O 09/28/17 09/28/17 09/28/17 09/29/17 09/29/17 09/29/17 07:00 15:00 23:00 07:00 15:00 23:00 Intake Total 240 ml Balance 240 ml Intake Oral 240 ml # Voids 2 3 Physical Exam GENERAL: Well developed, well nourished. No acute distress. HEENT: Jugular venous pressure is normal. CHEST: Lungs clear to auscultation bilaterally. Unlabored respiratory effort. CARDIAC: Regular rate and rhythm without S3, S4, or murmur. ABDOMEN: Soft, nontender, no hepatosplenomegaly. Bowel sounds present. EXTREMITIES: No clubbing, cyanosis, or edema. PACEMAKER: normal function Laboratory Laboratory Tests Test 09/28/17 20:10 09/29/17 07:47 Troponin I LESS THAN 0.02 NG/ML White Blood Count 5.1 TH/MM3 Red Blood Count 4.56 MIL/MM3 Hemoglobin 13.2 GM/DL Hematocrit 39.7 % Mean Corpuscular Volume 87.0 FL Mean Corpuscular Hemoglobin 28.9 PG Mean Corpuscular Hemoglobin Concent 33.2 % Red Cell Distribution Width 13.9 % Platelet Count 234 TH/MM3 Mean Platelet Volume 9.0 FL Neutrophils (%) (Auto) 34.9 % Lymphocytes (%) (Auto) 50.1 % Monocytes (%) (Auto) 8.7 % Eosinophils (%) (Auto) 5.3 % Basophils (%) (Auto) 1.0 % Neutrophils # (Auto) 1.8 TH/MM3 Lymphocytes # (Auto) 2.6 TH/MM3 Monocytes # (Auto) 0.4 TH/MM3 Eosinophils # (Auto) 0.3 TH/MM3 Basophils # (Auto) 0.0 TH/MM3 CBC Comment DIFF FINAL Differential Comment Hematology Comments Blood Urea Nitrogen 12 MG/DL Creatinine 0.65 MG/DL Random Glucose 77 MG/DL Calcium Level 8.7 MG/DL Sodium Level 139 MEQ/L Potassium Level 3.6 MEQ/L Chloride Level 107 MEQ/L Carbon Dioxide Level 24.9 MEQ/L Anion Gap 7 MEQ/L Estimat Glomerular Filtration Rate 91 ML/MIN Assessment and Plan Problem List: (1) Dizziness ICD Codes: R42 - Dizziness and giddiness Plan: ? vasovagal. No evidence of arrythmia as cause (2) Pacemaker ICD Codes: Z95.0 - Presence of cardiac pacemaker Plan: Pacer check OK (3) Atypical chest pain ICD Codes: R07.89 - Other chest pain Plan: Doubt ischemia. Prior (-) SPECT recently. PPI added Assessment and Plan I will F/U prn. Sean Lugo MD Sep 29, 2017 09:59
--- NOTE | 2017-09-29 10:08 | HHI.FPPN ---
Subjective Remarks Pt seen and examined this morning. She has been afebrile, vital signs have been stable. She reports dizziness and nausea. She currently denies chest pain, shortness of breath, lower extremity edema. She reports that she has been followed by Dr. Clement. She had an LP done due to concern for possible MS. She was told that she has Lupus and is currently being followed by rheumatology. She is not currently on any medication to treat lupus. She has a pacemaker and is not able to have an MRI. Objective Vitals Vital Signs Date Time Temp Pulse Resp B/P (MAP) Pulse Ox O2 Delivery O2 Flow Rate FiO2 09/29/17 09:00 98 21 09/29/17 08:31 97.4 100 18 122/81 (95) 96 09/29/17 04:43 98.7 92 18 140/75 (96) 96 09/29/17 02:48 21 09/29/17 00:00 97.8 82 18 174/84 (114) 97 09/28/17 17:55 78 09/28/17 17:16 98.4 93 22 130/79 (96) 96 09/28/17 16:40 09/28/17 14:03 72 18 120/73 (89) 99 Room Air 09/28/17 12:29 92 18 147/81 (103) 98 Room Air 09/28/17 11:14 99 21 I/O 09/28/17 09/28/17 09/28/17 09/29/17 09/29/17 09/29/17 07:00 15:00 23:00 07:00 15:00 23:00 Intake Total 240 ml Balance 240 ml Intake Oral 240 ml # Voids 2 3 Result Diagram: 09/29/17 0747 09/29/17 0747 Objective Remarks GENERAL: This is a well-nourished, well-developed patient, in no apparent distress lying in bed. SKIN: Cool and dry. HEAD: Atraumatic. Normocephalic. EYES: Extraocular motions intact. No scleral icterus. No injection or drainage. ENT: Nose without bleeding, drainage or rhinorrhea. Airway patent. CARDIOVASCULAR: Distant heart sounds, Regular rate and rhythm without murmur, gallop, or rub. RESPIRATORY: Clear to auscultation. Breath sounds equal bilaterally. No wheezes , rales, or rhonchi. GASTROINTESTINAL: Abdomen soft, non-tender, nondistended. .No guarding. MUSCULOSKELETAL: Extremities without clubbing, cyanosis, or edema. No joint tenderness, effusion, or edema noted. No calf tenderness. NEUROLOGICAL: Awake and alert. Motor and sensory grossly within normal limits. Normal speech. A/P Assessment and Plan 67YO female w/PMHx of hiatal hernia, fibromyalgia, lupus, and total AV block s/ p pacemaker placement in May 2016 who presents with 3 weeks of intermittent dizziness and 1 day of epigastric vs substernal CP w/o exertion. Pt had a similar presentation in July 2017 for 3 weeks of dizziness. Discharge Planning Anticipate discharge once patient has been evaluated and cleared by neurology. Likely 1-2 days. Problem List: (1) Atypical chest pain ICD Codes: R07.89 - Other chest pain Plan: Differential includes angina vs. acid reflux vs. musculoskeletal vs. others. Substernal vs epigastric CP 5/10 on pain scale that pt states feels the same as pain she experienced prior to getting her current pacemaker; there is no radiation, or vomiting, but was nauseous for a short period. -Echo pending -Neg ACS w/u: Troponins x3 <0/02; total CK 68; BNP 51 -Cardiology consult; she is followed by Dr Rosen, appreciate recommendations -Unlikely ischemia, PPI added -Started protonix 40mg PO daily -EKG: SINUS TACHYCARDIA WITH FIRST DEGREE AV BLOCK RIGHT BUNDLE BRANCH BLOCK Compared to previous tracing, ventricular pacing is not present compared to the prior ABNORMAL ECG -Tele -CRP 0.38 -Lipase 91 -TSH 3.8 -Free T4 1.31 -UA neg for infection, but trace occult blood and ketones -CBC wnl -CXR neg (2) Lightheadedness ICD Codes: R42 - Dizziness and giddiness Status: Acute Plan: Describes 3-4 weeks of being intermittently dizzy/lightheaded with no accompanying falls or LOC. Similar presentation in July 2017 with normal chemical stress test, non-exertional; describes TIA 2 years ago preceded by transient loss of vision (both eyes) for short period of time -CT head no acute findings -CXR neg -US carotids w/minimal plaque and no evidence of stenosis -Minimally elevated TSH 3.8, normal Free T4 1.31 -Neurology consulted, appreciate recommendations -Cardiology consult, appreciate recommendations, see above. -EEG with no abnormal findings. (3) AV block ICD Codes: I44.30 - Unspecified atrioventricular block Status: Acute Plan: Pacemaker/defibrillator placed in May 2016 for total AV Block; interrogation of device within normal limits per cardiology. EKG 09/28/17 w/SINUS TACHYCARDIA WITH FIRST DEGREE AV BLOCK RIGHT BUNDLE BRANCH BLOCK Compared to previous tracing, ventricular pacing is not present compared to the prior ABNORMAL ECG (4) Asthma ICD Codes: J45.909 - Asthma Status: Acute Plan: Continue home Proair 1 puff INH q4h PRN (5) Anxiety and depression ICD Codes: F32.9 - Major depressive disorder, single episode, unspecified; F41.9 - Anxiety and depression Status: Acute Plan: Continue home dose Celexa 10mg qhs (6) FEN/GI/PPx Plan: Fluids: PO fluids Electrolytes: monitor daily labs; replete as necessary Nutrition: Heart healthy diet GI: protonix 40mg PO PPx: Lovenox 40mg daily subq Tylenol 650mg PO PRN pain/fever Kathy Jacobs MD R3 Sep 29, 2017 10:08
[2017-09-29] MEDS: ASPIRIN 81 MG CHEW TAB CHEW SCH (13:51)
--- NOTE | 2017-09-29 15:52 | RADRPT ---
EXAM DATE/TIME: 09/29/2017 14:38 [facility] COMPARISON: CT BRAIN W/O CONTRAST, September 28, 2017, 9:04. INDICATIONS : Syncope for two weeks. Dizziness, occipital cephalgia and left hand numbness yesterday.. IV CONTRAST: 80 cc Omnipaque 350 (iohexol) IV ; Cumulative dose for multiple exams. RADIATION DOSE: 8.57 CTDIvol (mGy) ; Combined studies MEDICAL HISTORY : Lupus. Hypertension. Cardiovascular disease SURGICAL HISTORY : Hysterectomy. Pacemaker. ENCOUNTER: Initial ACUITY: 1 day PAIN SCALE: 0/10 LOCATION: Bilateral head TECHNIQUE: Volumetric scanning was performed using a multi-row detector CT scanner. The data was post processed with a variety of visualization algorithms including full volume maximum intensity projection, multi -planar sliding thin slab reformation, curved planar reformation, and surface rendering techniques. Using automated exposure control and adjustment of the mA and/or kV according to patient size, radiat ion dose was kept as low as reasonably achievable to obtain optimal diagnostic quality images. DICO M format image data is available electronically for review and comparison. FINDINGS: There is excellent visualization of the major intracranial arteries out to the second-order branch ve ssels. There is no evidence for aneurysm, vessel truncation or stenosis, and no evidence for vascula r malformation. CONCLUSION: Unremarkable exam. Devin Sosa MD on September 29, 2017 at 15:47 Board Certified Radiologist. This report was verified electronically.
--- NOTE | 2017-09-29 15:59 | RADRPT ---
EXAM DATE/TIME: 09/29/2017 14:38 [facility] COMPARISON: No previous studies available for comparison. INDICATIONS : Syncope for two weeks. Patient had dizziness, occipital cephalgia and left hand numbness yesterday. IV CONTRAST: 80 cc Omnipaque 350 (iohexol) IV ; Cumulative dose for multiple exams. RADIATION DOSE: 8.57 CTDIvol (mGy) ; Combined studies MEDICAL HISTORY : Lupus. Cardiovascular disease Hypertension. SURGICAL HISTORY : Hysterectomy. Pacemaker. ENCOUNTER: Initial ACUITY: 1 day PAIN SCALE: 0/10 LOCATION: Bilateral neck Elevated flow velocities and ICA/CCA ratios have been found to correlate with increased degrees of vessel stenosis, calculated as percentage of diameter relative to a normal segment of distal ICA/CCA. TECHNIQUE: Volumetric scanning was performed using a multirow detector CT scanner. The data was post processed with a variety of visualization algorithms including full-volume maximum intensity projection, multip lanar sliding thin-slab reformation, curved-planar reformation, and surface-rendering techniques. Us ing automated exposure control and adjustment of the mA and/or kV according to patient size, radiatio n dose was kept as low as reasonably achievable to obtain optimal diagnostic quality images. DICOM f ormat image data is available electronically for review and comparison. FINDINGS: AORTIC ARCH: There is a three-vessel origin of the great vessels from the aorta. No evidence of ostial narrowing. RIGHT CAROTID: The common carotid artery is intact. The carotid bulb has a normal configuration without ulceration o r narrowing. The internal carotid artery lumen is smooth without stenosis. The external carotid jacinda ry is intact. LEFT CAROTID: The common carotid artery is intact. The carotid bulb has a normal configuration without ulceration or narrowing. The internal carotid artery lumen is smooth without stenosis. The external carotid ar nely is intact. VERTEBRALS: The vertebral arteries have a symmetric diameter. No stenotic lesions are seen. CONCLUSION: Unremarkable exam. Devin Sosa MD on September 29, 2017 at 15:53 Board Certified Radiologist. This report was verified electronically.
[2017-09-30] VITALS: BP 129/80; PULSE 82; RESP 20; TEMP 97.8; O2SAT 97
[2017-09-30 08:15] VITALS: PULSE 66
[2017-09-30 08:23] VITALS: BP 99/56; PULSE 67; RESP 16; TEMP 97.9; O2SAT 95
[2017-09-30 08:53] LABS: BICARBONATE 21.9 MEQ/L (21.0-32.0); CALCIUM 8.7 MG/DL (8.5-10.1); CREATININE 0.66 MG/DL (0.50-1.00)
[2017-09-30 09:09] LABS: HEMATOCRIT 39.4 % (35.0-46.0); HEMOGLOBIN 13.5 GM/DL (11.6-15.3); MEAN CELL VOLUME 87.7 FL (80.0-100.0); MEAN CORPUSCULAR HEMOGLOBIN 30.1 PG (27.0-34.0); MEAN CORPUSCULAR HGB CONC 34.3 % (32.0-36.0); MEAN PLATELET VOLUME 9.6 FL (7.0-11.0); PLATELET COUNT 284 TH/MM3 (150-450); RED BLOOD COUNT 4.49 MIL/MM3 (4.00-5.30); RED CELL DISTRIBUTION WIDTH 13.7 % (11.6-17.2); WHITE BLOOD COUNT 5.7 TH/MM3 (4.0-11.0)
--- NOTE | 2017-09-30 09:19 | EKG ---
Date Performed: 09/29/2017 Time Performed: 00:15:48 PTAGE: 67 years EKG: The rhythm appears to be sinus with intermittent ventricular pacing and atrial premature be ats as well as ventricular premature beats. The ectopy appears new from the prior tracing. PREVIOUS TRACING : 09/28/2017 07.24 DOCTOR: Sean Lugo Interpretating Date/Time 09/30/2017 09:19:02
[2017-09-30] MEDS: ONDANSETRON ODT 4 MG TAB PO PRN (09:48)
[2017-09-30] MEDS: PANTOPRAZOLE SOD 40 MG DELAYED RELEASE TAB PO SCH (09:48)
[2017-09-30] MEDS: ASPIRIN 81 MG CHEW TAB CHEW SCH (09:48)
--- NOTE | 2017-09-30 10:07 | HHI.FPPN ---
Subjective Remarks Ms Mehta had no acute events overnight. States she had one episode of dizziness accompanied by nausea after getting up to go to the bathroom yesterday. Had ECHO and neurology testing yesterday. No recurrence of CP, except some discomfort that can be provoked manually by epigastric pressure. Pt has been on Ranitidine in the past for gastritis/reflux but had stopped therapy due to no recurrence of sxs and would prefer to go back on that medication vs protonix due to being osteopenic/osteoporotic. Denies SOB, N/V/D and DVT pain during interview. Objective Vitals Vital Signs Date Time Temp Pulse Resp B/P (MAP) Pulse Ox O2 Delivery O2 Flow Rate FiO2 09/30/17 08:23 97.9 67 16 99/56 (70) 95 09/30/17 00:00 97.8 82 20 129/80 (96) 97 09/29/17 21:41 98.5 93 18 98/60 (73) 94 09/29/17 17:25 94 09/29/17 16:38 96.0 96 18 97/53 (68) 96 09/29/17 12:55 100 I/O 09/29/17 09/29/17 09/29/17 09/30/17 09/30/17 09/30/17 07:00 15:00 23:00 07:00 15:00 23:00 # Voids 3 Result Diagram: 09/30/17 0755 09/30/17 0755 Imaging Last 48 hours Impressions Neck CTA 09/29/17 0000 Signed Impressions: Service Date/Time: Friday, September 29, 2017 14:38 - CONCLUSION: Unremarkable exam. Devin Sosa MD Head CTA 09/29/17 0000 Signed Impressions: Service Date/Time: Friday, September 29, 2017 14:38 - CONCLUSION: Unremarkable exam. Devin Sosa MD Objective Remarks GENERAL: This is a well-nourished, well-developed patient, in no apparent distress lying in bed. SKIN: Cool and dry. No rashes or lesions. HEAD: Atraumatic. Normocephalic. EYES: Extraocular motions intact. No scleral icterus. No injection or drainage. ENT: Nose without bleeding, drainage or rhinorrhea. Airway patent. CARDIOVASCULAR: Distant heart sounds, Regular rate and rhythm without murmur, gallop, or rub. RESPIRATORY: Clear to auscultation. Breath sounds equal bilaterally. No wheezes , rales, or rhonchi. GASTROINTESTINAL: Abdomen soft, non-tender, nondistended. .No guarding. MUSCULOSKELETAL: Extremities without clubbing, cyanosis, or edema. No joint tenderness, effusion, or edema noted. No calf tenderness. NEUROLOGICAL: Awake and alert. Motor and sensory grossly within normal limits. Normal speech. Medications and IVs Current Medications Medications (Trade) Dose Ordered Sig/Celine Route Start Time Stop Time Status Last Admin (Proair Hfa Inh) 1 puff Q4H PRN INH 09/28/17 11:30 (CeleXA) 10 mg HS PO 09/28/17 21:00 09/29/17 20:59 (Tylenol) 650 mg Q6H PRN PO 09/28/17 12:30 (Protonix) 40 mg DAILY PO 09/29/17 09:00 09/30/17 09:48 (Lovenox Inj) 40 mg Q24H SQ 09/28/17 21:00 09/29/17 20:59 (Zofran Odt) 4 mg Q6H PRN PO 09/29/17 03:15 09/30/17 09:48 (Aspirin Chew) 81 mg DAILY CHEW 09/29/17 12:30 09/30/17 09:48 Urinary Catheter: No A/P Assessment and Plan 67YO female w/PMHx of hiatal hernia, fibromyalgia, lupus, and total AV block s/ p pacemaker placement in May 2016 who presents with 3 weeks of intermittent dizziness and 1 day of epigastric vs substernal CP w/o exertion. Pt had a similar presentation in July 2017 for 3 weeks of dizziness. Workup thus far by Cardiology has revealed a working pacemaker and ECHO study still pending but Cardiology has signed off. Neurology did not reveal any cause for pt's dizziness. Pt would benefit from Zantac for gastritis/epigastric pain. It appears dizzy spells date back to 2013 or 2014, but pt and her believed at the time that a UTI or hypokalemia were the causes of dizziness at those times; however, during this hospitalization, pt's UA is negative for infection, pt has no WBC or fever to suggest an infectious etiology. Also, the pt arrived with normal serum potassium levels. Orthostatic vital signs reveal non-concerning changes in BPs from supine (97/61) to sitting (108/65) to standing (109/71). HR was tachycardic to 102 in all 3 positions on 09/30/17. We will discharge today with labs to be drawn prior to discharge and instructions for pt to closely follow with her Tank Tender and PCP for further workup as an outpt. Seen with Dr Mills and álvaro Hameed Discharge Planning Anticipate discharge once patient has been evaluated and cleared by neurology. Likely 1-2 days. Problem List: (1) Atypical chest pain ICD Codes: R07.89 - Other chest pain Plan: Differential includes angina vs. acid reflux vs. musculoskeletal vs. others. Substernal vs epigastric CP 5/10 on pain scale that pt states feels the same as pain she experienced prior to getting her current pacemaker; there is no radiation, or vomiting, but was nauseous for a short period. -Echo pending -Neg ACS w/u: Troponins x3 <0/02; total CK 68; BNP 51 -Cardiology consult; she is followed by Dr Rosen, appreciate recommendations -Unlikely ischemia, PPI added -Started protonix 40mg PO daily -EKG: SINUS TACHYCARDIA WITH FIRST DEGREE AV BLOCK RIGHT BUNDLE BRANCH BLOCK Compared to previous tracing, ventricular pacing is not present compared to the prior ABNORMAL ECG -Tele -CRP 0.38 -Lipase 91 -TSH 3.8 -Free T4 1.31 -UA neg for infection, but trace occult blood and ketones -CBC wnl -CXR neg Impression: Pt reports CP resolved after starting protonix (PPI) Recommend pt go home with Zantac 150mg daily (pt preference due to low bone density) and adhere to the following: elevate HOB, go to bed no earlier than 3 hours after last meal, and avoid dairy products and other foods/liquids which might cause acid reflux. (2) Lightheadedness ICD Codes: R42 - Dizziness and giddiness Status: Acute Plan: Describes 3-4 weeks of being intermittently dizzy/lightheaded with no accompanying falls or LOC. Similar presentation in July 2017 with normal chemical stress test, non-exertional; describes TIA 2 years ago preceded by transient loss of vision (both eyes) for short period of time -CT head no acute findings -CXR neg -US carotids w/minimal plaque and no evidence of stenosis -Minimally elevated TSH 3.8, normal Free T4 1.31 -Neurology consulted, appreciate recommendations -Cardiology consult, appreciate recommendations, see above. -EEG with no abnormal findings. (3) AV block ICD Codes: I44.30 - Unspecified atrioventricular block Status: Acute Plan: Pacemaker/defibrillator placed in May 2016 for total AV Block; interrogation of device within normal limits per cardiology. EKG 09/28/17 w/SINUS TACHYCARDIA WITH FIRST DEGREE AV BLOCK RIGHT BUNDLE BRANCH BLOCK Compared to previous tracing, ventricular pacing is not present compared to the prior ABNORMAL ECG (4) Asthma ICD Codes: J45.909 - Asthma Status: Acute Plan: Continue home Proair 1 puff INH q4h PRN (5) Anxiety and depression ICD Codes: F32.9 - Major depressive disorder, single episode, unspecified; F41.9 - Anxiety and depression Status: Acute Plan: Continue home dose Celexa 10mg qhs (6) FEN/GI/PPx Plan: Fluids: PO fluids Electrolytes: monitor daily labs; replete as necessary Nutrition: Heart healthy diet GI: discharge with Zantac 150mg PO daily PPx: Lovenox 40mg daily subq Tylenol 650mg PO PRN pain/fever Sergey Fisher MD R1 Sep 30, 2017 10:07
[2017-09-30 11:08] VITALS: BP_SYST 108; BP_SYST 109; BP_SYST 97; BP_DIAS 61; BP_DIAS 65; BP_DIAS 71; PULSE 102; RESP 16; TEMP 98.1; O2SAT 95
--- NOTE | 2017-09-30 13:06 | RADRPT ---
EXAM DATE/TIME: 09/30/2017 12:33 [facility] COMPARISON: No previous studies available for comparison. INDICATIONS : Abdominal pain. MEDICAL HISTORY : Hypertension. Glasses. Fibromyalgia. Hyperlipidemia. Chest pain. Asthma. Dyspnea. Diverticulitis. Hiatal hernia. Abdominal pain. Urinary tract infection. Depression. Anxiety. SURGICAL HISTORY : Pacemaker. Cholecystectomy. Hysterectomy. Bilateral cataract surgery. Right knee replacement. Left sh oulder repair. ENCOUNTER: Initial ACUITY: 1 day PAIN SCORE: 0/10 LOCATION: Abdomen. MEASUREMENTS: LIVER: 16.0 cm length COMMON DUCT: 6 mm RIGHT KIDNEY: 10.2 x 4.5 x 4.5 cm LEFT KIDNEY: 9.9 x 5.1 x 4.4 cm SPLEEN: 7.5 cm length AORTA: 1.6cm maximal FINDINGS: LIVER: Normal echotexture without focal lesion or ductal dilatation. COMMON DUCT: No intraluminal mass or stone visualized. GALLBLADDER: Status post cholecystectomy. PANCREAS: The visualized portions are within normal limits. RIGHT KIDNEY: No hydronephrosis, stone or mass. LEFT KIDNEY: No hydronephrosis, stone or mass. SPLEEN: No focal lesion. AORTA: Non aneurysmal. IVC: Within normal limits. CONCLUSION: 1. Unremarkable exam status post cholecystectomy. Devin Sosa MD on September 30, 2017 at 13:02 Board Certified Radiologist. This report was verified electronically.
[2017-09-30] MEDS ORDERED: RANI150T PO (13:12)
--- NOTE | 2017-09-30 13:14 | HHI.DCPOC ---
Discharge Care Plan Goals to Promote Your Health * To prevent worsening of your condition and complications, please take Zantac 150mg daily and adhere to the following: elevate HOB, go to bed no earlier than 3 hours after last meal, and avoid dairy products and other foods/liquids which might cause acid reflux. * To maintain your health at the optimal level, please follow up with your Cath Lab Tech and primary care provider. Also, please have them follow up with the labs we are drawing today before you discharge. Directions to Meet Your Goals Take your medications as prescribed Follow your dietary instruction Follow activity as directed Keep your appointments as scheduled Take your immunizations and boosters as scheduled If your symptoms worsen call your PCP, if no PCP go to Urgent Care Center or Emergency Room Smoking is Dangerous to Your Health. Avoid second hand smoke Call the 24-hour hour crisis hotline for domestic abuse at Sergey Fisher MD R1 Sep 30, 2017 13:14
[2017-09-30 15:32] VITALS: BP 103/55; PULSE 105; RESP 18; TEMP 98.1; O2SAT 95
--- NOTE | 2017-09-30 17:02 | ECHRPT ---
Indication: CONCLUSIONS The left ventricular systolic function is mildly reduced with an estimated ejection fraction in the range of 45- 50%. Normal left ventricular size. Wall thickness is normal. No regional wall motion abnormalities are present. There is trace tricuspid valve regurgitation. Normal estimated pulmonary pressures. Mild pulmonary valve regurgitation. BP: / HR: Rhythm: MEASUREMENTS (Male / Female) Normal Values Technical Quality: 2D ECHO LV Diastolic Diameter PLAX 4.3 cm 4.2 - 5.9 / 3.9 - 5.3 cm LV Systolic Diameter PLAX 3.6 cm IVS Diastolic Thickness 0.8 cm 0.6 - 1.0 / 0.6 - 0.9 cm LVPW Diastolic Thickness 0.7 cm 0.6 - 1.0 / 0.6 - 0.9 cm LV Relative Wall Thickness 0.4 RV Internal Dim ED PLAX 1.7 cm LA Systolic Diameter LX 3.2 cm 3.0 - 4.0 / 2.7 - 3.8 cm M-MODE Aortic Root Diameter MM 3.1 cm AV Cusp Separation MM 1.8 cm DOPPLER Mitral E Point Velocity 56.8 cm/s Mitral A Point Velocity 79.5 cm/s Mitral E to A Ratio 0.7 TR Peak Velocity 205.0 cm/s TR Peak Gradient 16.8 mmHg FINDINGS LEFT VENTRICLE The left ventricular systolic function is mildly reduced with an estimated ejection fraction in the range of 45- 50%. Normal left ventricular size. Wall thickness is normal. No regional wall motion abnormalities are present. RIGHT VENTRICLE Normal right ventricular size and systolic function. LEFT ATRIUM The left atrial size is normal. RIGHT ATRIUM The right atrial size is normal. ATRIAL SEPTUM Normal atrial septal thickness without atrial level shunting by limited color doppler interrogation. AORTA The aortic root and proximal ascending aorta are normal in size on limited imaging. MITRAL VALVE Structurally normal mitral valve. No mitral valve stenosis or regurgitation. AORTIC VALVE Trileaflet aortic valve. No aortic valve stenosis or regurgitation. TRICUSPID VALVE Structurally normal tricuspid valve. There is trace tricuspid valve regurgitation. Normal estimated pulmonary pressures. PULMONARY VALVE Mild pulmonary valve regurgitation. VESSELS The inferior vena cava is normal in size. PERICARDIUM No pericardial effusion. Prieto Gray MD (Electronically Signed) Final Date:30 September 2017 17:02
[2017-09-30 20:45] VITALS: O2SAT 98
--- NOTE | 2017-09-30 21:44 | HHI.DS ---
Discharge Summary Admission Date Sep 28, 2017 at 10:09 Discharge Date: Sep 30, 2017 Admitting Diagnosis chest pain/dizziness (1) Dizziness Diagnosis: Principal ICD Codes: R42 - Dizziness and giddiness (2) Atypical chest pain Diagnosis: Principal ICD Codes: R07.89 - Other chest pain (3) Anxiety and depression Diagnosis: Secondary ICD Codes: F32.9 - Major depressive disorder, single episode, unspecified; F41.9 - Anxiety and depression Status: Acute (4) GERD (gastroesophageal reflux disease) Diagnosis: Principal ICD Codes: K21.9 - GERD (gastroesophageal reflux disease) Status: Acute Procedures ECHO 09/29/16: CONCLUSIONS The left ventricular systolic function is mildly reduced with an estimated ejection fraction in the range of 45- 50%. Normal left ventricular size. Wall thickness is normal. No regional wall motion abnormalities are present. There is trace tricuspid valve regurgitation. Normal estimated pulmonary pressures. Mild pulmonary valve regurgitation. Brief History Ms Mehta is a 67YO female w/PMHx hiatal hernia, fibromyalgia, lupus, and total AV block s/p pacemaker placement in May 2016 who presents with 3 weeks of intermittent dizziness and 1 day of epigastric vs substernal CP w/o exertion. Her dizzy spells occur at no particular time of day which are sometimes accompanied with SOB. The pt feels weak but not ready to pass out and there is no LOC. The pt last fell in June but she tripped and was not dizzy at the time. She does not become dizzy when transferring from supine to sitting or sitting to standing. Last night she began having epigastric/substernal CP at rest in bed with some diaphoresis but the spell abated spontaneously. There is no radiation of the CP. She had no palpitations at the time. The CP started again this morning and she notes some increase in discomfort when she presses just below her xiphoid or above her umbilicus. The CP is a 5/10 on pain scale, the worst pain she has had since getting a pacemaker in May 2016. She is followed by Dr Rosen and has an appt to follow up on Saturday. She saw Dr Ferraro, her PCP, Saturday and was hypotensive at that visit, so her amlodipine was stopped at that time. She also takes Celexa for anxiety and as a sleep aid. She was dx in February 2017 with a hiatal hernia and gastritis by Dr Mon (did EGD) , but does not complain of heartburn or reflux sxs. Indicates she had a cough two weeks ago. Additionally, she had similar sxs of dizziness in July and was hospitalized requiring a chemical cardiac stress test that was normal. Has 30 lb wt loss over last year and some numbness in her left hand. Denies N/V/D, DVT pain. CBC/BMP: 09/30/17 0755 09/30/17 0755 Significant Findings Laboratory Tests Test 09/28/17 07:49 09/28/17 08:53 09/28/17 20:10 09/29/17 07:47 Estimat Glomerular Filtration Rate 82 ML/MIN (>89) Troponin I LESS THAN 0.02 NG/ML LESS THAN 0.02 NG/ML C-Reactive Protein 0.38 MG/DL (0.00-0.30) Cholesterol Level 209 MG/DL (120-200) LDL Cholesterol 128 MG/DL (0-99) HDL Cholesterol 70.8 MG/DL (40.0-60.0) Thyroid Stimulating Hormone 3rd Gen 3.800 uIU/ML (0.358-3.740) Urine Ketones 10 mg/dL (NEG) Urine Occult Blood TRACE (NEG) Lymphocytes (%) (Auto) 50.1 % (9.0-44.0) Monocytes (%) (Auto) 8.7 % (0.0-8.0) Eosinophils (%) (Auto) 5.3 % (0.0-4.0) Test 09/30/17 07:55 09/30/17 14:18 Chloride Level 108 MEQ/L (98-107) Imaging Last Impressions Abdomen Ultrasound 09/30/17 0000 Signed Impressions: Service Date/Time: Saturday, September 30, 2017 12:33 - CONCLUSION: 1. Unremarkable exam status post cholecystectomy. Devin Sosa MD Neck CTA 09/29/17 0000 Signed Impressions: Service Date/Time: Friday, September 29, 2017 14:38 - CONCLUSION: Unremarkable exam. Devin Sosa MD Head CTA 09/29/17 0000 Signed Impressions: Service Date/Time: Friday, September 29, 2017 14:38 - CONCLUSION: Unremarkable exam. Devin Sosa MD Head CT 09/28/17 0824 Signed Impressions: Service Date/Time: Thursday, September 28, 2017 09:04 - CONCLUSION: No acute intracranial findings. Chele Carlos MD Chest X-Ray 09/28/17 0716 Signed Impressions: Service Date/Time: Thursday, September 28, 2017 07:42 - CONCLUSION: No acute cardiopulmonary disease identified. Chele Carlos MD Carotid Artery Ultrasound 09/28/17 0000 Signed Impressions: Service Date/Time: Thursday, September 28, 2017 13:37 - CONCLUSION: Minimal plaque with no evidence of stenosis. Devin Sosa MD PE at Discharge GENERAL: This is a well-nourished, well-developed patient, in no apparent distress lying in bed. SKIN: Cool and dry. No rashes or lesions. HEAD: Atraumatic. Normocephalic. EYES: Extraocular motions intact. No scleral icterus. No injection or drainage. ENT: Nose without bleeding, drainage or rhinorrhea. Airway patent. CARDIOVASCULAR: Regular rate and rhythm without murmur, gallop, or rub. RESPIRATORY: Clear to auscultation. Breath sounds equal bilaterally. No wheezes , rales, or rhonchi. GASTROINTESTINAL: Abdomen soft, non-tender, nondistended. .No guarding. MUSCULOSKELETAL: Extremities without clubbing, cyanosis, or edema. No joint tenderness, effusion, or edema noted. No calf tenderness. NEUROLOGICAL: Awake and alert. Motor and sensory grossly within normal limits. Normal speech. Hospital Course Ms Mehta presented with atypical chest pain for 1 day and dizzy spells for 3- 4 weeks. Her workup included Cardiac testing with Cardiology consulted to interrogate her pacemaker, an ECHO study and continuous heart monitoring. Her workup also included neurology consult that included extensive imaging studies. Although EKG showed RBBB and sinus tachycardia, her troponins an total CK were wnl. She describes dizziness, but not pre-syncope or syncope. The dizzy spells are accompanied by nausea and can appear while sitting, standing, or supine. Orthostatic vital signs were wnl, although the pt had periods where she was relatively hypotensive followed by periods of being normotensive. Dr Lugo saw her in the hospital and declared that she could see her Computer Programming Manager for further workup as an outpatient. Dr Ramirez from neurology saw her in the hospital and evaluated her dizziness, including EEG wnl, and declared that her dizziness was not neurologically related. CT head, CTA head and neck, MRI brain, CXR, abdominal US were all wnl and did not reveal an etiology for the dizziness. We collected several labs upon her discharge that can be followed by her PCP to further examine an etiology for her dizziness. She did not have a UTI as her UA was negative; and her potassium level was wnl throughout her stay. We also discussed with her the possibility that her lupus could be a cause and should be discussed with Dr Pastrana. It is possible she may have some component of autonomic instability, but at this point, all other possibilities have not yet been excluded. As for her atypical chest pain, we believe it to be related to her hiatal hernia and gastritis. Pt states she has been off of her Ranitidine that was prescribed some time ago following her EGD. After taking protonix for 2 days, the pt had symptom relief but preferred to take Ranitidine again versus a PPI for her bone health. We suggested she follow this up with her PCP as well. She discharged in stable condition with a benign physical exam. Pt Condition on Discharge: Stable Discharge Disposition: Discharge Home Discharge Instructions DIET: Follow Instructions for: As Tolerated, No Restrictions Activities you can perform: Regular-No Restrictions Follow up Referrals: Cardiology - 1 Week PCP Follow-up - 1 Week New Medications: Ranitidine (Ranitidine) 150 Mg Tab 150 MG PO DAILY PRN for REFLUX for 30 Days, #30 TAB 0 Refills Continued Medications: Albuterol 8.5 GM Inh (Proair Hfa 8.5 GM Inh) 90 Mcg/Act Aer 1 PUFF INH Q4H PRN for SHORTNESS OF BREATH, INHALER 0 Refills 108 mcg/actuation Citalopram (Citalopram) 10 Mg Tab 10 MG PO HS for Control Depression, #30 TAB 0 Refills Cranberry (Vaccinium Macrocarpon) (Ellura) 200 Mg Cap Potassium Chloride ER (Potassium Chloride ER) 20 Meq Tab 20 MEQ PO BID for Electrolyte Replacement for 2 Days, #4 TAB 0 Refills Discontinued Medications: Amlodipine (Amlodipine) 5 Mg Tab 5 MG PO HS for Blood Pressure Management, #30 TAB 0 Refills Lorazepam (Lorazepam) 0.5 Mg Tab 0.5 MG PO TID PRN for ANXIETY, TAB 0 Refills Sergey Fisher MD R1 Sep 30, 2017 21:44
[2017-10-02 12:39] LABS: RENIN 1.1 ng/mL/h
== END 2017-09-30 20:46 | disposition home or self-care (01) ==
LOC: NEPE 07:03 → NEDA 10:09 → NEPGCP 16:35
PROVIDERS: ADMIT Internal Medicine Interventional Cardiology; ATTEND Family Medicine
DX: R07.89 Other chest pain (principal); R42 Dizziness and giddiness; I44.30 Unspecified atrioventricular block; J45.909 Unspecified asthma, uncomplicated; F41.8 Other specified anxiety disorders; M79.7 Fibromyalgia; Z95.0 Presence of cardiac pacemaker; R53.1 Weakness; R05 Cough; R20.0 Anesthesia of skin; R61 Generalized hyperhidrosis; R63.4 Abnormal weight loss; R06.00 Dyspnea, unspecified; R11.0 Nausea; I10 Essential (primary) hypertension; E78.5 Hyperlipidemia, unspecified; K21.9 Gastro-esophageal reflux disease without esophagitis; R00.0 Tachycardia, unspecified; I44.0 Atrioventricular block, first degree; I45.10 Unspecified right bundle-branch block; I49.1 Atrial premature depolarization; K44.9 Diaphragmatic hernia without obstruction or gangrene; M41.9 Scoliosis, unspecified; M81.0 Age-related osteoporosis without current pathological fracture; M85.80 Other specified disorders of bone density and structure, unspecified site; Z86.73 Personal history of transient ischemic attack (TIA), and cerebral infarction without residual deficits; Z79.899 Other long term (current) drug therapy; Z96.651 Presence of right artificial knee joint; Z88.5 Allergy status to narcotic agent
CPT/HCPCS: 70450; 70496; 70498; 71045; 76700; 76937; 80048; 80061; 81001; 82024; 82088; 82533; 82550; 83690; 83880; 84244; 84439; 84443; 84484; 85025; 85027; 85652; 86140; 93005; 93306; 93880; 95819; 96372; 97162; 99285; G0378; J1650; Q9967

== ENCOUNTER 2017-12-11 11:04 | Day surgery (SDC) | payer MEDICARE ==
[~2017-12-11] VITALS: Ht 149.9 cm; Wt 67.7 kg
[~2017-12-11 11:04] MED LIST changes: -AMLO5TAB2 PO; -LORA0.5T PO; +RANI150T PO
[2017-12-11] MEDS ORDERED: IOHEXOL 350 MG/ML 50 ML BTL (for Cath Lab) OTHER ONE (11:05)
[2017-12-11] MEDS ORDERED: NS 1000P @30 MLS/HR (KVO) IV SCH (11:30)
[2017-12-11] MEDS ORDERED: MULT-65 PO (11:40)
[2017-12-11] MEDS ORDERED: FLUT50SP EACH NARE (11:40)
[2017-12-11] MEDS ORDERED: LACTCAP8 PO (11:40)
[2017-12-11 11:41] VITALS: BP 156/99; PULSE 85; RESP 19; TEMP 98.1; O2SAT 96
[2017-12-11 11:54] LABS: AUTOMATED NEUTROPHIL # 2.8 TH/MM3 (1.8-7.7); BASOPHIL # 0.1 TH/MM3 (0-0.2); BASOPHIL % 1.2 % (0.0-2.0); EOSINOPHIL # 0.1 TH/MM3 (0-0.4); HEMATOCRIT 41.8 % (35.0-46.0); LYMPHOCYTE # 1.9 TH/MM3 (1.0-4.8); MEAN CELL VOLUME 86.5 FL (80.0-100.0); MEAN CORPUSCULAR HGB CONC 33.5 % (32.0-36.0); MONO % 9.4 % (0.0-8.0); MONOCYTE # 0.5 TH/MM3 (0-0.9); NEUT % 51.4 % (16.0-70.0); PLATELET COUNT 325 TH/MM3 (150-450); RED BLOOD COUNT 4.83 MIL/MM3 (4.00-5.30); WHITE BLOOD COUNT 5.4 TH/MM3 (4.0-11.0)
[2017-12-11 12:02] LABS: PROTHROMBIN TIME - PATIENT 10.6 SEC (9.8-11.6)
[2017-12-11 12:08] LABS: CALCIUM 9.1 MG/DL (8.5-10.1); CREATININE 0.74 MG/DL (0.50-1.00)
[2017-12-11] MEDS ORDERED: HEPARIN-NS/PF FLUSH BAG 1,000 ML IV FLUSH ONE (14:57)
[2017-12-11] MEDS ORDERED: VERAPAMIL HCL 5 MG/2 ML VIAL ONE (14:57)
[2017-12-11] MEDS ORDERED: HEPARIN SODIUM - IV 10,000 UNITS/10 ML VIAL ONE (14:58)
[2017-12-11] MEDS ORDERED: NITROGLYCERIN INJ 5 ML ONE (14:58)
[2017-12-11] MEDS ORDERED: ONDANSETRON HCL 4 MG/2 ML VIAL ONE (15:14)
[2017-12-11] MEDS ORDERED: MIDAZOLAM HCL 2 MG/2 ML VIAL ONE (15:20)
--- NOTE | 2017-12-11 16:28 | CATHPROC ---
CRAZE HIS Report Study Information Study Number Admission Scheduled Start Study Start [id number] Dec 11 2017 11:04AM 12/11/2017 Dec 11 2017 2:52PM [place] [facility] Cardiac Catheterization Admit Source Facility Department Other [facility] Physician and Clinical Staff Initial Robert Greenberg Upholsterer Helper Veronica Deluca RN Recorder Rhea Wiggins,RT(R) Scrub Coni StephensRT(R) (BS) Procedures Performed Procedure Location (Site) Vessel Name Coronary Angiograms LCA Left Coronary Coronary Angiograms RCA Right Coronary L Heart Cath Equipment Time Waiver Analyst Description Size Mfg Part Number Used/Scraped TRANSDUCER, TRUWAVE [id number] 15:18 ARZATE MENCHACA * Used W/STOCKCOCK *[id number] *[id number] 15:18 KeepRecipes PACK, CCL CUSTOM * Used *[id number] 15:18 [employer]ipes SUPPORT, ARTERIAL ADULT [id number] *[id number] Used [id number] 15:48 MEDTRONIC JR 4.0 DXTERITY CATHETER FR 5 Used *[id number] BAND, RADIAL COMPRESSION TR [id number] 16:04 Member Savings Program MEDICAL 24CM Used SHORT 24 *[id number] 8006-23 15:33 Member Savings Program MEDICAL WIRE, EXCHANGE 260CM .035 260CM Used *[id number] 15:18 Member Savings Program MEDICAL WIRE, EXCHANGE 260CM 3MMJ 260CM Used *[id number] 15:18 NAMIC MANIFOLD, 4 PORT * Used *[id number] 15:18 NYCOMED OMNIPAQUE, 350 MG, 150ML 150ML [id number] Used [id number] 15:18 GARCÍA MEDICAL BLANKET,WARM AIR CCL * Used *[id number] SHEATH, FR6 TRANSRADIAL [id number] 15:18 LiftDNA FR 6 Used SLENDER 10CM *[id number] Equipment Model, Serial, Lot Number and Expiration Data Description Model Number Serial Number Lot Number Expiration Date BAND, RADIAL COMPRESSION TR [id number] 10-16-2020 SHORT 24 History: Allergies Allergy Reaction Dilaudid Dizziness tramadol Dizziness ofloxacin RASH hydromorphone Dizziness codeine N/V/DIZZINESS Floxcin RASH morphine NAUSEA CHEST PAIN History: Risk Factors Family History of Hypertension Dyslipidemia Previous [place] Previous Heart Failure Premature CAD No No No No No Prior Valve Prior PCI Prior CABG Surgery No No No Cerebrovascular Peripheral Artery Chronic Lung On Dialysis Diabetes Disease Disease Disease No No No No No Labs Hgb (g/dl) Hct (%) WBC (l/cumm) Platelets (thousands) 11.60-17.00 35.00-51.00 4.00-11.00 150.00-450.00 14.0 41.8 5.4 325 Glucose (mg/dl) BUN (mg/dl) Creatinine (mg/dl) BUN:Creatinine (1:x) 74.00-106.00 7.00-18.00 0.50-1.30 10.00-20.00 87 13 0.7 18.6 Na (meq/l) K (meq/l) 136.00-145.00 3.50-5.10 142 3.7 INR (PTT:PT) 0.90-1.10 1 CPK-MB (ng/ML) 0.50-3.60 Not Drawn Medication Medication Total Dose (Bolus/Oral) Medication Total Dosage/Unit 1% XYLOCAINE 20 mL RADIAL COCKTAIL 5 mL (Bolus) VERSED 0.5 mg ZOFRAN 4 mg Medications (Bolus/Oral) Medication Time Given Dosage/Unit Administered By Reason ZOFRAN 12/11/2017 3:17:03 PM 4 mg Veronica Deluca 4 mg ZOFRAN given in lab by Veronica Deluca, RN in Left Antecubital via Central IV. Ordered by Robert Oro VERSED 12/11/2017 3:37:36 PM 0.5 mg Veronica Deluca 0.5 mg VERSED given in lab by Veronica Deluca, RN in Left Antecubital via Peripheral IV. Ordered by Robert Alaniz 1% XYLOCAINE 12/11/2017 3:47:47 PM 20 mL Robert Toro 20 mL 1% XYLOCAINE given in lab by Robert Toro in Right Radial via Subcutaneous. Ordered by Robert Ram RADIAL COCKTAIL 12/11/2017 3:49:21 PM 5 mL (Bolus) Robert Toro 5 mL (Bolus) RADIAL COCKTAIL given in lab by Robert Toro in Right Radial via Radial. Using [S olution Name]. Ordered by Robert Toro Reason: Ntg 200mcg Verapamil 2.5mg Heparin 2700U. Medication (Drip) Medication Time Given Dosage/Unit Concentration/Unit Diluent (ml) Solution IV Solutions 12/11/2017 3:11:08 PM 50 mL (IV) NaCl .9 IV Solutions given in lab by Veronica Deluca RN in Left Antecubital via Peripheral IV. Pump/Drip Flow using NaCl .9. Initial Case Assessment Cardiovascular HR Rhythm NIBP Chest Pain 63 SR 161/86 0 Edema Present Skin color Skin None Normal Warm Dry Circulatory - Right Pulses Dorsalis Pedis Femoral Radial 1 1 2 Scale (0,1,2,3,4,d) Circulatory - Left Pulses Dorsalis Pedis Femoral Radial 2 Scale (0,1,2,3,4,d) Neurological State Oriented to time-place- Alert Moves all extremities person Respiration - General Respiration Rate SpO2 (%) (B/min) 14 99 Chronological Log Time Study Chronological Log 15:10:00 MD arrived. 15:10:45 Patient arrived via Bed. 15:10:46 Patient Name, D.O.B, / Armband Verified By R.N. 15:10:47 Consent signed by the physician and the patient and verified by the [facility] staff. 15:10:47 Pre-op and post- op instructions given; patient acknowledges understanding of instructions. 15:10:51 Verbal Stimulation=2 Physical Stimulation=2 Airway=2 Respiration=2 TOTAL=8. (0=absent, 1=li mited, 2=present) 15:10:56 Presedation assessment performed by [facility] RN. 15:10:57 Allens test performed on the right radial and ulnar artery. 15:10:59 Patient has been NPO for More than 6Hrs. 15:11:00 Skin Breakdown- none per pt 15:11:03 Patient Warmer Placed on the Table. 15:11:05 Kaylin Prominences Protected 15:11:06 IV Warmer Connected To Patient. 15:11:07 A # 20 IV was noted in the Antecubital (left). Grade = 0 15:11:08 IV Solutions given in lab by Veronica Deluca, RN in Left Antecubital via Peripheral IV. Pump /Drip Flow using NaCl .9. 15:11:09 History and physical on the chart or being dictated. Assessment: Initial Case, HR=63 BPM, Rhythm=SR, YZDS=850/86 mmhg, Chest Pain=0, Edema=None, Col or=Normal, Skin = Warm, Dry Right Pulses: Maksim Ped=1, Femoral=1, Radial=2 15:11:10 Left Pulses: Femoral=2 Neurological: State=Alert, Ox3, DAVIS Respiration: Resp=14 B/min, SpO2=99 % 15:17:03 4 mg ZOFRAN given in lab by Veronica Deluca, RN in Left Antecubital via Central IV. Ordered by Robert Toro 15:22:16 Reference ECG taken Vitals capture started with the following parameters, Patient=Adult, Interval=5 min, Initial Pr fjkxir=632 mmHg, 15:23:33 Deflation Rate=5 mmHg, Cuff placed on Left Arm 15:24:07 HR=61 bpm, LJMD=646/86 mmhg, SpO2=98.0 %, Resp=9 B/min 15:24:54 Right Radial and right groin prepped with 2% chlorhexidine, and draped after a 3 min. waiti ng time. 15:29:08 HR=59 bpm, OOZX=438/86 mmhg, SpO2=97.0 %, Resp=10 B/min 15:30:[address] Toro to return from seeing a patient. 15:34:09 HR=60 bpm, DLAI=986/85 mmhg, SpO2=96.0 %, Resp=11 B/min 15:35:33 Pressure channel 1 zeroed. 0.5 mg VERSED given in lab by Veronica Deluca, RN in Left Antecubital via Peripheral IV. Ordered by Robert Toro 15:37:36 G. 15:39:15 HR=61 bpm, IVSL=154/79 mmhg, SpO2=98.0 %, Resp=10 B/min 15:44:14 HR=60 bpm, NETM=859/86 mmhg, SpO2=97.0 %, Resp=13 B/min Time Out. Correct patient, correct procedure, correct physician, power injector not loaded with contrast with surgical 15:46:06 team present. Time Out Concurred by MD and individual staff in procedure. 15:47:40 Case Start 20 mL 1% XYLOCAINE given in lab by Robert Toro in Right Radial via Subcutaneous. Ordere d by Cortez 15:47:47 Robert Shen 15:48:48 Access site was right Radial Artery. A SHEATH, FR6 TRANSRADIAL SLENDER 10CM FR 6 was advanced into the Radial (right) using the Perc utaneous 15:49:01 technique. 15:49:13 HR=66 bpm, KEKG=320/83 mmhg, SpO2=96.0 %, Resp=12 B/min 5 mL (Bolus) RADIAL COCKTAIL given in lab by Robert Toro in Right Radial via Radial. Us ing [Solution Name]. 15:49:21 Ordered by Robert Toro. Reason: Ntg 200mcg Verapamil 2.5mg Heparin 2700U. A JR 4.0 DXTERITY CATHETER FR 5 was advanced over a wire. OMNIPAQUE, 350 MG, 150ML 150ML was us ed for 15:50:17 injections. Recorded Pressure: LV, HR=94, Condition=Condition 1 15:52:35 (Left Ventricle) LV 124/2/4 Recorded Pressure: LV, Ao, HR=92, Condition=Condition 1 15:52:50 (Left Ventricle) LV 119/-2/2, (Aorta) Ao 122/72/96 15:53:36 The RCA was injected and visualized at various angles. OMNIPAQUE, 350 MG, 150ML 150ML used . Recorded Pressure: Ao, HR=62, Condition=Condition 1 15:54:01 (Aorta) Ao 115/58/81 15:54:14 HR=69 bpm, LJBQ=300/70 mmhg, SpO2=95 %, Resp=15 B/min After removing the current catheter a JL 3.5 INFINITI CATHETER FR 5 was advanced over a WIRE, E XCHANGE 260CM 15:55:05 3MMJ 260CM. 15:57:53 The LCA was injected and visualized at various angles. OMNIPAQUE, 350 MG, 150ML 150ML used . 15:59:46 HR=61 bpm, ICPU=643/66 mmhg, SpO2=94.0 %, Resp=9 B/min 16:03:24 Catheter was removed 16:03:49 Case End 16:04:53 HR=60 bpm, UTUL=798/73 mmhg, SpO2=95.0 %, Resp=8 B/min Radial Compression Device Used. 12 mLs of air placed in BAND, RADIAL COMPRESSION TR SHORT 24 24 CM. Affected 16:05:28 hand 97 % O2 saturation. 16:06:17 No case complications noted. 16:06:18 Cine recording checked. 16:06:20 Holding Area notified. 16:06:25 Bedside Report will be given. 16:06:29 A Left Heart Cath was performed. 16:09:56 HR=60 bpm, SZIU=770/74 mmhg, SpO2=95.0 %, Resp=8 B/min 16:12:00 Patient moved to stretcher 16:14:46 Vitals capture stopped. End Study - Contrast Media Used In Study Contrast Total Opened (mL) Total Used (mL) Total Wasted (mL) Omnipaque 45 45 0 End Study - Maximum Contrast Load Max Contrast Load (mL) 483.8 End Study - Radiation Exposure Fluoro Time (minutes) 2.9 End Study - Patient Disposition Complications Transferred To Interventional Outcome No [facility] No attempt made
[2017-12-11] MEDS ORDERED: MISC INFORMATION XX ONE (16:45)
--- NOTE | 2017-12-12 00:18 | MA ---
cc: Robert Toro DO DATE: 12/11/2017 PROCEDURE: Left heart catheterization, coronary angiogram, moderate sedation 15 minutes. PREPROCEDURE DIAGNOSIS: Shortness of breath. POSTPROCEDURE DIAGNOSIS: Mild coronary artery disease. MEDICATIONS: Versed 0.5 mg, Zofran 4 mg, heparin 2700 units, nitro 200, verapamil 2.5 mg. CONTRAST USED: 45 mL FLUOROSCOPY: 2.9 minutes. MODERATE SEDATION: 15 minutes. ESTIMATED BLOOD LOSS: 10 mL PROCEDURAL SUMMARY: Anika Mehta is a pleasant 67-year-old female who sees my partner, Dr. Rosen in the office and underwent stress testing due to shortness of breath and fatigue. She had a negative stress test, but continued to have shortness of breath and fatigue and was concerned for a false positive of her stress test and so she was recommended cardiac catheterization. Risks, benefits and alternatives were explained to her and she consented to such. She was brought to the lab and prepped in the usual sterile fashion. The right radial artery was accessed using a modified Seldinger technique and placement of a 5/6 Iranian Slender sheath. This was easily aspirated and flushed. A JR4 was advanced over J-wire to the ascending aorta and across the aortic valve for measurement of left ventricular pressure. This was pulled back across the aortic valve showing no significant gradient of aortic stenosis. JR4 was used for selective angiography of the right coronary artery system. This is exchanged out for a JL3.5, which was used for selective angiography of the left coronary artery system. JL3.5 was removed over a J wire. Radial band was placed over the arteriotomy site for hemostasis. 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 FINDINGS: LEFT MAIN: Normal size vessel with adequate reflux. It bifurcates into an LAD and circumflex. LEFT ANTERIOR DESCENDING: Normal size vessel with mild luminal irregularities in the proximal to mid portion of up to 10%. Distally, the vessel shows no significant disease, although does have mild tortuosity. The LAD gives off 3 diagonals with the first 2 being small and the third one being moderate size. No significant disease is noted. LEFT CIRCUMFLEX: Normal size vessel with mild luminal irregularities. It gives off 2 obtuse marginals with no significant disease. RIGHT CORONARY ARTERY: Moderate size vessel with mild tortuosity. It is a dominant vessel by nature and gives off a PDA and 2 PLBs with no significant disease noted throughout the system. LEFT VENTRICULAR END DIASTOLIC PRESSURE: 2. IMPRESSION: 1. Shortness of breath. 2. Minimal coronary artery disease. RECOMMENDATIONS: 1. Ms. Mehta appears to have minimal to mild coronary artery disease at most and she will be recommended continued medical therapy. 2. She will be discharged home today to follow up with Dr. Rosen as previously scheduled. Thank you for allowing me to see Anika Mehta. If there are any questions please do not hesitate to call. Robert Toro DO VGP/rt , 11:55 PM , 12:16 AM
== END 2017-12-11 18:51 | disposition home or self-care (01) ==
LOC: HCAT 11:04 → HDIC 11:05 → HCAT 18:51
PROVIDERS: ATTEND Nuclear Medicine Nuclear Cardiology
DX: I25.10 Atherosclerotic heart disease of native coronary artery without angina pectoris (principal)
CPT/HCPCS: 80048; 85025; 85610; 85730; 93458; 99152; 99153; C1769; C1893; J1644; J2250; J2405; J3010; Q9967

== ENCOUNTER → 2017-12-25 | Outpatient (CLI) | payer MEDICARE ==
[~2017-12-25] MED LIST changes: +FLUT50SP EACH NARE; +IOHEXOL 350 MG/ML 10 ML VIAL (for RAD DIAG) IVCONTRAST ONE; +LACTCAP8 PO; +MULT-65 PO; -POTA-163 PO
--- NOTE | 2017-12-25 09:10 | RADRPT ---
EXAM DATE/TIME: 12/25/2017 08:56 [place] COMPARISON: No previous studies available for comparison. INDICATIONS : Dyspnea, chest pain, cough IV CONTRAST: 71 cc Omnipaque 350 (iohexol) IV RADIATION DOSE: 13.71 CTDIvol (mGy) MEDICAL HISTORY : Cardiovascular disease. Hypertension. Lupus. SURGICAL HISTORY : Pacemaker. Hysterectomy.Cholecystectomy. ENCOUNTER: Initial ACUITY: 1 day PAIN SCALE: 5/10 LOCATION: chest TECHNIQUE: Volumetric scanning of the chest was performed using a pulmonary embolism protocol MIP images were re constructed. Using automated exposure control and adjustment of the mA and/or kV according to patien t size, radiation dose was kept as low as reasonably achievable to obtain optimal diagnostic quality images. DICOM format image data is available electronically for review and comparison. Follow-up recommendations for detected pulmonary nodules are based at a minimum on nodule size and pa tient risk factors according to Fleischner Society Guidelines. FINDINGS: PULMONARY ARTERIES: No filling defects are seen in the pulmonary arteries through the segmental level. LUNGS: There is no consolidation or pneumothorax . No concerning pulmonary nodule is visualized. PLEURAE: There is no pleural thickening or pleural effusion. MEDIASTINUM: There is good visualization of the great vessels of the middle mediastinum. No evidence of mediastin al or hilar adenopathy/mass. MUSCULOSKELETAL: Within normal limits for patient age. MISCELLANEOUS: Large hiatal hernia. CONCLUSION: Large hiatal hernia. Pacemaker left chest. Otherwise negative. Kalpesh Back MD FACR on December 25, 2017 at 9:06 Board Certified Radiologist. This report was verified electronically.
== END ==
LOC: HRSP 07:49
DX: R07.9 Chest pain, unspecified (principal); R06.00 Dyspnea, unspecified; I10 Essential (primary) hypertension; J45.909 Unspecified asthma, uncomplicated
CPT/HCPCS: 36415; 71275; 82785; 94060; 94726; 94729; Q9967